=== PATIENT | male | born 1995 | race Hispanic/Latino ===

== ENCOUNTER 2019-01-31 01:14 | Emergency (ER) | payer SELFPAY ==
[~2019-01-31] VITALS: Ht 170.2 cm; Wt 109.1 kg
[2019-01-31 02:20] LABS: BASO % 0.2 % (0.0-1.0); EOS # 0.1 10^3/uL (0.0-0.50); EOS % 0.9 % (0.0-3.0); HEMATOCRIT 45.7 % (42.0-52.0); HEMOGLOBIN 15.2 g/dl (13.5-17.5); LYMPH # 2.7 10^3/uL (1.5-6.5); LYMPH % 30.1 % (24.0-44.0); MEAN CORPUSCULAR HEMOGLOBIN 30.1 pg (27.0-33.0); MEAN CORPUSCULAR HGB CONC 33.3 g/dl (32.0-36.5); MEAN CORPUSCULAR VOLUME 90.5 fl (80.0-96.0); MONO # 0.7 10^3/uL (0.0-0.8); MONO % 7.5 % (0.0-5.0); NEUTROPHILS # 5.4 10^3/uL (1.8-7.7); PLATELET COUNT, AUTOMATED 205 10^3/uL (150-450); RED BLOOD COUNT 5.05 10^6/uL (4.30-6.10); WHITE BLOOD COUNT 8.9 10^3/uL (4.0-10.0)
[2019-01-31 02:49] LABS: BLOOD UREA NITROGEN 18 MG/DL (7-18); CALCIUM LEVEL 8.6 MG/DL (8.5-10.1); CARBON DIOXIDE LEVEL 24 MEQ/L (21-32); CHLORIDE LEVEL 107 MEQ/L (98-107); CPK CREATINE PHOSPHOKINASE 371 U/L (39-308); CREATININE FOR GFR 1.24 MG/DL (0.70-1.30); GLOMERULAR FILTRATION RATE > 60.0 (>60); GLUCOSE, FASTING 89 MG/DL (70-100); MB/CK RELATIVE INDEX 1.02 (< OR =4); POTASSIUM SERUM 3.9 MEQ/L (3.5-5.1); SODIUM LEVEL 139 MEQ/L (136-145); TROPONIN I < 0.02 NG/ML (< 0.10)
[2019-01-31 06:07] LABS: CPK CREATINE PHOSPHOKINASE 348 U/L (39-308); MB/CK RELATIVE INDEX 1.01 (< OR =4); TROPONIN I < 0.02 NG/ML (< 0.10)
[2019-01-31] MEDS ORDERED: OMEPRAZOLE 20 MG CAP PO ONE (06:15)
[2019-01-31] MEDS ORDERED: OMEP40CA2 PO (06:44)
[2019-01-31 07:09] VITALS: BP 127/85
--- NOTE | 2019-01-31 07:56 | REP ---
Chest x-ray: Two views. History: Chest pain . Comparison study: No comparison . Findings: The lungs are well inflated and free of infiltrate. The pleural angles are sharp. The heart size is normal. Pulmonary vasculature is not increased. No significant bony abnormality is seen. Impression: Negative chest x-ray. Electronically Signed by Sae Ortiz MD 01/31/2019 07:47 A
--- NOTE | 2019-02-01 08:54 | ECGEPIP ---
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
--- NOTE | 2019-02-01 09:00 | ECGEPIP ---
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
== END 2019-01-31 07:15 | disposition home or self-care (01) ==
LOC: M ED 01:14
DX: R00.2 Palpitations (principal)

== ENCOUNTER 2019-11-17 12:03 | Emergency (ER) | payer SELFPAY ==
[~2019-11-17] VITALS: Ht 167.6 cm; Wt 108.2 kg
[~2019-11-17 12:03] MED LIST: OMEP40CA97 PO
--- NOTE | 2019-11-17 13:14 | REP ---
Chest x-ray: Two views. History: Chest pain. Comparison chest x-ray: January 31, 2019. Findings: EKG monitoring electrodes overlie the chest. Lungs are well inflated and clear. Pleural angles are sharp. Heart size is normal. No bony abnormality. Impression: Negative chest x-ray. Electronically Signed by Sae Ortiz MD 11/17/2019 01:05 P
[2019-11-17 13:35] LABS: BASO % 0.6 % (0.0-1.0); EOS # 0.1 10^3/uL (0.0-0.5); HEMATOCRIT 48.7 % (42.0-52.0); HEMOGLOBIN 15.4 g/dl (13.5-17.5); LYMPH # 1.7 10^3/uL (1.5-5.0); LYMPH % 32.9 % (24.0-44.0); MEAN CORPUSCULAR HEMOGLOBIN 29.3 pg (27.0-33.0); MEAN CORPUSCULAR HGB CONC 31.6 g/dl (32.0-36.5); MEAN CORPUSCULAR VOLUME 92.8 fl (80.0-96.0); MONO # 0.5 10^3/uL (0.0-0.8); MONO % 9.8 % (0.0-5.0); NEUTROPHILS # 2.8 10^3/uL (1.5-8.5); NEUTROPHILS % 55.5 % (36.0-66.0); PLATELET COUNT, AUTOMATED 216 10^3/uL (150-450); RED BLOOD COUNT 5.25 10^6/uL (4.30-6.10)
[2019-11-17 14:03] LABS: ERYTHROCYTE SEDIMENTATION RATE 5 mm/hr (0-15)
[2019-11-17 14:11] LABS: BLOOD UREA NITROGEN 12 MG/DL (7-18); CALCIUM LEVEL 8.6 MG/DL (8.5-10.1); CARBON DIOXIDE LEVEL 25 MEQ/L (21-32); CHLORIDE LEVEL 108 MEQ/L (98-107); CK-MB VALUE MASS 1.9 NG/ML (<3.6); CPK CREATINE PHOSPHOKINASE 174 U/L (39-308); GLOMERULAR FILTRATION RATE > 60.0 (>60); GLUCOSE, FASTING 92 MG/DL (70-100); LIPASE 56 U/L (73-393); MB/CK RELATIVE INDEX 1.09 (< OR =4); NT-PRO BNP 49 PG/ML (<125); POTASSIUM SERUM 4.3 MEQ/L (3.5-5.1); SODIUM LEVEL 139 MEQ/L (136-145); THYROID STIMULATING HORMONE 0.973 uIU/ML (0.358-3.740); TROPONIN I < 0.02 NG/ML (< 0.10)
[2019-11-17 14:57] VITALS: BP 119/63
--- NOTE | 2019-11-17 15:07 | ECGEPIP ---
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
== END 2019-11-17 15:19 | disposition home or self-care (01) ==
LOC: M ED 12:03
DX: R07.9 Chest pain, unspecified (principal); R00.2 Palpitations; R42 Dizziness and giddiness

== ENCOUNTER → 2021-01-06 | Outpatient (CLI) | payer OTHER ==
--- NOTE | 2021-01-09 08:11 | SLEEPHOME ---
DATE: 01/06/2021 ORDERED BY: Juan Pablo Storm Diagnostic home sleep testing was performed due to concern for the obstructive sleep apnea syndrome. For testing, a Nox T3 respiratory monitoring device was used. Continuous record was made of pulse, oxygen saturation, air flow, chest and abdominal strain, and body position. There was 9 hours and 59 minutes of data reviewed. There was 7 hours and 46 minutes marked as time in bed. During the interval marked time in bed, there were 746 respiratory events identified of 10 seconds in duration or greater for a respiratory event index of 96. The events were primarily obstructive. Baseline pulse rate 74. Pulse rate ranged 39-106. Baseline saturation 95%. Saturations fell to 75%. Testing was performed in the both the supine and nonsupine positions. IMPRESSION: Abnormal home sleep testing with repetitive respiratory events and oxygen desaturations to 75% with a respiratory event index of 96 is consistent with the obstructive sleep apnea syndrome. RECOMMENDATION: The patient should be encouraged to undergo formal sleep evaluation.
== END ==
LOC: M SLEEP HO 14:08
PROVIDERS: ATTEND Physician Assistant
DX: G47.30 Sleep apnea, unspecified (principal)

== ENCOUNTER → 2021-02-10 | Outpatient (CLI) | payer OTHER ==
--- NOTE | 2021-02-11 17:28 | SLEEPCENT ---
DATE: 02/10/2021 ORDERED BY: Juan Pablo Storm Nocturnal polysomnography was performed for the titration of pressure therapy in this patient with a clinical diagnosis of obstructive sleep apnea syndrome, confirmed by home testing, revealing respiratory event index of 96 with saturations to 75%. For testing, a ResMed Quattro full-face mask of medium size was used. There was 4 cm of water pressure applied to the circuit, and the lights were extinguished. There was 8 hours and 38 minutes of data reviewed. There was 381 minutes of sleep identified. Sleep latency was prolonged at 64.5 minutes. REM latency was prolonged at 165 minutes. Sleep architecture improved late in the study, but fragmentation persisted. Overall sleep efficiency was 74.6%. The electrocardiogram showed a sinus rhythm with an average heart rate of 72 beats per minute. Rate ranged 60-95. EEG showed normal waveforms for wake and sleep. Persistence of respiratory events prompted increases in CPAP pressure. Best sleep was seen on a CPAP pressure of 14 cm. Some minor snoring persisted. There was activity in the limb EMG leads on this study. Limb movement arousal index was 4.7. IMPRESSION: Obstructive sleep apnea syndrome (G47.33). RECOMMENDATION: Nightly use of pressure therapy, 14 cm of water.
== END ==
LOC: M SLEEP 20:00
PROVIDERS: ATTEND Physician Assistant
DX: G47.33 Obstructive sleep apnea (adult) (pediatric) (principal)

== ENCOUNTER 2021-09-18 17:39 | Emergency (ER) | payer OTHER ==
[~2021-09-18] VITALS: Ht 167.6 cm; Wt 102.3 kg
[~2021-09-18 17:39] MED LIST changes: +OMEP40CA4 PO; -OMEP40CA97 PO
--- OUTSIDE RECORDS SUMMARY | 2021-09-18 17:48 | CCD | Continuity of Care Document ---
Author Author Marlo STORM P.Vikas Organization Unknown Address [address] [place] [address] Phone [phone] Care Team Providers Care Hydraulic Press Tender Name Role Phone Corrine Williamson AUTM AUTM Unavailable Mary Beth Godwin M.D. AUTM [phone] Problems Active Problems Provider Date Obstructive sleep apnea syndrome Juan Pablo Storm PHernán Onset: 01/27/2021 Social History Type Date Description Comments Sex Unknown Tobacco Use Start: Unknown End: Unknown Patient is a former smoker hx marijuana daily; quit 2016 Smoking Status Reviewed: 08/13/21 Patient is a former smoker hx marijuana daily; quit 2016 Allergies and adverse reactions Description No Known Drug Allergies Medications Active Medications SIG Qnty Indications Ordering Provide r Date CPAP Device 14cm amadeo Torres D.O. 02/11/[address] 1 tab by mouth every day Unknown Flecainide Acetate 50mg Tablets 1 tab by mouth twice a day Unknown Metoprolol Succinate ER 50mg Tablets ER 24HR 1 tab by mouth twice a day Unknown 0 Immunizations Description No Information Available Vital Signs Date Vital Result Comment 08/13/2021 12:38pm BP Systolic 108 mmHg BP Diastolic 60 mmHg Heart Rate 66 /min O2 % BldC Oximetry 98 % Height 67 inches 5'7" Weight 238.00 lb BMI (Body Mass Index) 37.3 kg/m2 [place] Body Weight 148 lb Weight 107.957 kg BSA (Body Surface Area) 2.18 m2 05/13/2021 1:49pm BP Systolic 120 mmHg BP Diastolic 60 mmHg Heart Rate 64 /min O2 % BldC Oximetry 98 % Height 67 inches 5'7" Weight 255.00 lb BMI (Body Mass Index) 39.9 kg/m2 [place] Body Weight 148 lb Weight 115.668 kg BSA (Body Surface Area) 2.24 m2 Results Description No Information Available Procedures Date Code Description Status 05/13/2021 67436 Office/Outpatient Established Lo w MDM 20-29 Min Completed 04/07/2021 60436 Office/Outpatient Established Lo w MDM 20-29 Min Completed Medical Devices Description No Information Available Encounters Type Date Location Provider Dx Diagnosis Office Visit 05/13/2021 2:00p [facility] Pulmonary/Thoracic Roya Aldrich G47.33 Obstructive sleep apnea (adult) (pediatr ic) Office Visit 04/07/2021 3:00p [facility] Pulmonary/Thoracic Roya Aldrich G47.33 Obstructive sleep apnea (adult) (pediatr ic) Assessments Date Code Description Provider 08/13/2021 G47.33 Obstructive sleep apnea (adult) (pediatric) Roya Aldrich 05/13/2021 G47.33 Obstructive sleep apnea (adult) (pediatric) Roya Alrdich 04/07/2021 G47.33 Obstructive sleep apnea (adult) (pediatric) Roya Aldrich 04/03/2021 G47.33 Obstructive sleep apnea (adult) (pediatric) Roya Aldrich Plan of Treatment Future Appointment(s):* 02/11/2022 2:00 pm - Roya Aldrich at [facility] Pulmonary/Thoracic 08/13/2021 - Roya Aldrich* G47.33 Obstructive sleep apnea (adult) (pediatric) * * Follow up:* Follow up in 6 months with download Functional Status Description No Information Available Mental Status Description No Information Available Referrals Refer to Reason for Referral Status Appt Date Juan Pablo Storm R.P.A.-C. MELCHOR Scheduled 05/2021 [facility]-Pulmonary [address] [place] [address] [phone]
--- OUTSIDE RECORDS SUMMARY | 2021-09-18 17:48 | CCD | Continuity of Care Document ---
Author Author Marlo STORM P.Vikas Organization Unknown Address [address] [place] [address] Phone [phone] Care Team Providers Care Shot Coat Tender Name Role Phone Corrine Williamson AUTM [phone] AUTM Unavailable Mary Beth Godwin M.D. AUTM [phone] Problems Active Problems Provider Date Obstructive sleep [...] lb BMI (Body Mass Index) 37.3 kg/m2 [place] Body Weight 148 lb Weight 107.957 kg BSA (Body Surface Area) 2.18 m2 05/13/2021 1:49pm BP Systolic 120 mmHg BP Diastolic 60 mmHg Heart Rate 64 /min O2 % BldC Oximetry 98 % Height 67 inches 5'7" Weight 255.00 lb BMI (Body Mass Index) 39.9 kg/m2 [place] Body Weight 148 lb Weight 115.668 kg BSA (Body Surface Area) 2.24 m2 Results Description No Information Available Procedures Date Code Description Status 05/13/2021 15710 Office/Outpatient Established Lo w MDM 20-29 Min Completed 04/07/2021 71011 Office/Outpatient Established Lo w MDM 20-29 Min Completed Medical Devices Description No Information Available Encounters Type Date Location Provider Dx Diagnosis Office Visit 05/13/2021 2:00p [facility] Pulmonary/Thoracic Roya Aldrich G47.33 Obstructive sleep apnea (adult) (pediatr ic) Office Visit 04/07/2021 3:00p [facility] Pulmonary/Thoracic Roya Aldrich G47.33 Obstructive sleep apnea (adult) (pediatr ic) Assessments Date Code Description Provider 08/13/2021 G47.33 Obstructive sleep apnea (adult) (pediatric) Roya Aldrich 05/13/2021 G47.33 Obstructive sleep apnea (adult) (pediatric) Roya Aldrich 04/07/2021 G47.33 Obstructive sleep apnea (adult) (pediatric) Roya Aldrich 04/03/2021 G47.33 Obstructive sleep apnea (adult) (pediatric) Roya Aldrich Plan of Treatment Future Appointment(s):* 02/11/2022 2:00 pm - Roya Aldrich at [facility] Pulmonary/Thoracic 08/13/2021 - Roya Aldrich* G47.33 Obstructive sleep apnea (adult) (pediatric) * * Follow up:* Follow up in 6 months with download Functional Status Description No Information Available Mental Status Description No Information Available Referrals Refer to Reason for Referral Status Appt Date Juan Pablo Storm R.P.A.-C. MELCHOR Scheduled 05/2021 [facility]-Pulmonary [address] [place] [address] [phone]
--- OUTSIDE RECORDS SUMMARY | 2021-09-18 17:48 | CCD | Continuity of Care Document ---
Author Author Marlo STORM P.Vikas Organization Unknown Address [address] [place] [address] Phone [phone] Care Team Providers Care Choral Teacher Name Role Phone Corrine Williamson AUTM [phone] AUTM Unavailable Mary Beth Godwin M.D. AUTM [phone] Problems Active Problems Provider Date Obstructive sleep [...] lb BMI (Body Mass Index) 37.3 kg/m2 [place] Body Weight 148 lb Weight 107.957 kg BSA (Body Surface Area) 2.18 m2 05/13/2021 1:49pm BP Systolic 120 mmHg BP Diastolic 60 mmHg Heart Rate 64 /min O2 % BldC Oximetry 98 % Height 67 inches 5'7" Weight 255.00 lb BMI (Body Mass Index) 39.9 kg/m2 [place] Body Weight 148 lb Weight 115.668 kg BSA (Body Surface Area) 2.24 m2 Results Description No Information Available Procedures Date Code Description Status 05/13/2021 15970 Office/Outpatient Established Lo w MDM 20-29 Min Completed 04/07/2021 80691 Office/Outpatient Established Lo w MDM 20-29 Min Completed Medical Devices Description No Information Available Encounters Type Date Location Provider Dx Diagnosis Office Visit 05/13/2021 2:00p [facility] Pulmonary/Thoracic Roya Aldrich G47.33 Obstructive sleep apnea (adult) (pediatr ic) Office Visit 04/07/2021 3:00p [facility] Pulmonary/Thoracic Roya Aldrich G47.33 Obstructive sleep apnea (adult) (pediatr ic) Assessments Date Code Description Provider 08/13/2021 G47.33 Obstructive sleep apnea (adult) (pediatric) Roya Aldrich 05/13/2021 G47.33 Obstructive sleep apnea (adult) (pediatric) Roya Aldrich 04/07/2021 G47.33 Obstructive sleep apnea (adult) (pediatric) Roya Aldrich 04/03/2021 G47.33 Obstructive sleep apnea (adult) (pediatric) Roya Aldrich Plan of Treatment Future Appointment(s):* 02/11/2022 2:00 pm - Roya Aldrich at [facility] Pulmonary/Thoracic 08/13/2021 - Roya Aldrich* G47.33 Obstructive sleep apnea (adult) (pediatric) * * Follow up:* Follow up in 6 months with download Functional Status Description No Information Available Mental Status Description No Information Available Referrals Refer to Reason for Referral Status Appt Date Juan Pablo Storm R.P.A.-C. MELCHOR Scheduled 05/2021 [facility]-Pulmonary [address] [place] [address] [phone]
--- OUTSIDE RECORDS SUMMARY | 2021-09-18 17:48 | CCD ---
Author Author [facility] Organization [facility] Address Unknown Phone Unavailable Care Team Providers Care Records Supervisor Name Role Phone Clay Winkler Corrine PA-C Unavailable Unavailabl e Petrancosta, Winkler Corrine PA-C Unavailable Unavailabl e Petrancosta, Winkler Corrine PA-C Unavailable Unavailabl e Petrancosta, Winkler Corrine PA-C Unavailable Unavailabl e Petrancosta, Winkler Corrine PA-C Unavailable Unavailabl e Petrancosta, Winkler Corrine PA-C Unavailable Unavailabl e Petrancosta, Winkler Corrine PA-C Unavailable Unavailabl e Petrancosta, Winkler Corrine PA-C Unavailable Unavailabl e Petrancosta, Winkler Corrine PA-C Unavailable Unavailabl e Petrancosta, Winkler Corrine PA-C Unavailable Unavailabl e Petrancosta, Winkler Corrine PA-C Unavailable Unavailabl e Petrancosta, Winkler Corrine PA-C Unavailable Unavailabl e Petrancosta, Winkler Corrine PA-C Unavailable Unavailabl e Petrancosta, Winkler Corrine PA-C Unavailable Unavailabl e Petrancosta, Winkler Corrine PA-C Unavailable Unavailabl e Petrancosta, Winkler Corrine PA-C Unavailable Unavailabl e Petrancosta, Winkler Corrine PA-C Unavailable Unavailabl e Petrancosta, Winkler Corrine PA-C Unavailable Unavailabl e Petrancosta, Winkler Corrine PA-C Unavailable Unavailabl e Petrancosta, Winkler Corrine PA-C Unavailable Unavailabl e Petrancosta, Winkler Corrine PA-C Unavailable Unavailabl e Petrancosta, Winkler Corrine PA-C Unavailable Unavailabl e Petrancosta, Winkler Corrine PA-C Unavailable Unavailabl e Petrancosta, Winkler Corrine PA-C Unavailable Unavailabl e Petrancosta, Winkler Corrine PA-C Unavailable Unavailabl e [place], V DANIEL PA-C Unavailable Unavailable [place], V DANIEL PA-C Unavailable Unavailable Lorene, V DANIEL PA-C Unavailable Unavailable Lorene, V DANIEL PA-C Unavailable Unavailable [place], V DANIEL PA-C Unavailable Unavailable [place], V DANIEL PA-C Unavailable Unavailable [place], V DANIEL PA-C Unavailable Unavailable [place], V DANIEL PA-C Unavailable Unavailable Lorene, V DANIEL PA-C Unavailable Unavailable Lorene, V DANIEL PA-C Unavailable Unavailable Lorene, V DANIEL PA-C Unavailable Unavailable [place], V DANIEL PA-C Unavailable Unavailable Lorene, V DANIEL PA-C Unavailable Unavailable [place], V DANIEL PA-C Unavailable Unavailable Petrancosta, Winkler Corrine PA-C Unavailable Unavailabl e Petrancosta, Winkler Corrine PA-C Unavailable Unavailabl e Petrancosta, Winkler Corrine PA-C Unavailable Unavailabl e Petrancosta, Winkler Corrine PA-C Unavailable Unavailabl e Petrancosta, Winkler Corrine PA-C Unavailable Unavailabl e Petrancosta, Winkler Corrine PA-C Unavailable Unavailabl e Petrancosta, Winkler Corrine PA-C Unavailable Unavailabl e Petrancosta, Winkler Corrine PA-C Unavailable Unavailabl e Petrancosta, Winkler Corrine PA-C Unavailable Unavailabl e Petrancosta, Winkler Corrine PA-C Unavailable Unavailabl e Petrancosta, Winkler Corrine PA-C Unavailable Unavailabl e Petrancosta, Winkler Corrine PA-C Unavailable Unavailabl e Petrancosta, Winkler Corrine PA-C Unavailable Unavailabl e Petrancosta, Winkler Corrine PA-C Unavailable Unavailabl e Petrancosta, Winkler Corrine PA-C Unavailable Unavailabl e Petrancosta, Winkler Corrine PA-C Unavailable Unavailabl e Petrancosta, Winkler Corrine PA-C Unavailable Unavailabl e Petrancosta, Winkler Corrine PA-C Unavailable Unavailabl e Petrancosta, Winkler Corrine PA-C Unavailable Unavailabl e Petrancosta, Winkler Corrine PA-C Unavailable Unavailabl e Petrancosta, Winkler Corrine PA-C Unavailable Unavailabl e Petrancosta, Winkler Corrine PA-C Unavailable Unavailabl e Petrancosta, Winkler Corrine PA-C Unavailable Unavailabl e Petrancosta, Winkler Corrine PA-C Unavailable Unavailabl e Petrancosta, Winkler Corrine PA-C Unavailable Unavailabl e STYLES, M AMANDA PA Unavailable Unavailable STYLES, M AMANDA PA Unavailable Unavailable STYLES, M AMANDA PA Unavailable Unavailable STYLES, M AMANDA PA Unavailable Unavailable STYLES, M AMANDA PA Unavailable Unavailable STYLES, M AMANDA PA Unavailable Unavailable STYLES, M AMANDA PA Unavailable Unavailable STYLES, M AMANDA PA Unavailable Unavailable STYLES, M AMANDA PA Unavailable Unavailable STYLES, M AMANDA PA Unavailable Unavailable STYLES, M AMANDA PA Unavailable Unavailable STYLES, M AMANDA PA Unavailable Unavailable STYLES, M AMANDA PA Unavailable Unavailable STYLES, M AMANDA PA Unavailable Unavailable STYLES, M AMANDA PA Unavailable Unavailable STYLES, M AMANDA PA Unavailable Unavailable STYLES, M AMANDA PA Unavailable Unavailable STYLES, M AMANDA PA Unavailable Unavailable STYLES, M AMANDA PA Unavailable Unavailable STYLES, M AMANDA PA Unavailable Unavailable STYLES, M AMANDA PA Unavailable Unavailable STYLES, M AMANDA PA Unavailable Unavailable STYLES, M AMANDA PA Unavailable Unavailable STYLES, M AMANDA PA Unavailable Unavailable STYLES, M AMANDA PA Unavailable Unavailable STYLES, M AMANDA PA Unavailable Unavailable STYLES, Jada PATEL PA Unavailable Unavailable STYLES, Jada PATEL PA Unavailable Unavailable STYLES, Jada PATEL PA Unavailable Unavailable STYLES, Jada PATEL PA Unavailable Unavailable STYLES, Jada PATEL PA Unavailable Unavailable STYLES, Jada PATEL PA Unavailable Unavailable STYLES, Jada PATEL PA Unavailable Unavailable STYLES, Jada PATEL PA Unavailable Unavailable STYLES, Jada PATEL PA Unavailable Unavailable Re-disclosure Warning The records that you are about to access may contain information from federally-assisted alcohol or drug abuse programs. If such information is present, then the following federally mandated warning applies: This information has been disclosed to you from records protected by federal confidentiality rules (42 CFR part 2). The federal rules prohibit you from making any further disclosure of this information unless further disclosure is expressly permitted by the written consent of the person to whom it pertains or as otherwise permitted by 42 CFR part 2. A general authorization for the release of medical or other information is NOT sufficient for this purpose. The Federal rules restrict any use of the information to criminally investigate or prosecute any alcohol or drug abuse patient.The records that you are about to access may contain highly sensitive health information, the redisclosure of which is protected by Article 27-F of the [facility] Public Health law. If you continue you may have access to information: Regarding HIV / AIDS; Provided by facilities licensed or operated by the [facility] Office of Mental Health; or Provided by the [facility] Office for People With Developmental Disabilities. If such information is present, then the following [facility] mandated warning applies: This information has been disclosed to you from confidential records which are protected by state law. State law prohibits you from making any further disclosure of this information without the specific written consent of the person to whom it pertains, or as otherwise permitted by law. Any unauthorized further disclosure in violation of state law may result in a fine or [place] health care facility sentence or both. A general authorization for the release of medical or other information is NOT sufficient authorization for further disc losure. Encounters Encounter Providers Location Date Indications Data Source(s ) Outpatient Attender: AMANDA Sahu/Yared/Selvin/Tita dl 08/13/2021 12:30:00 PM EDT [facility] ([facility], ) Outpatient Referrer: DANIEL PHILIPPECT-SJP.SYR 01:06:[address] [facility] Outpatient Attender: DANIEL Francisferrer: [facility] PHILIPPEOSCAR-SJP.OSCAR 06/18/2021 12:59:55 PM EDT - 06/18/2021 01:54:[address] [facility] Outpatient Attender: AMANDA Sahu/[place]/Selvin/Rein dl 05/13/2021 02:00:00 PM EDT [facility] Out[facility] Attender: AMANDA Sahu/[place]/Selvin/Rein dl 04/07/2021 03:00:00 PM EDT [facility] ([facility], ) Outpatient Attender: DANIEL Francisferrer: [facility] PHILIPPEOSCAR-SJP.OSCAR 03/18/2021 03:09:34 PM EDT - 03/18/2021 04:09:[address] [facility] Outpatient Referrer: DANIEL PHILIPPECT-SJP.SYR 12:00:[address] [facility] Outpatient Attender: DANIEL Francisferrer: [facility] LÓPEZ.OSCAR-SJP.OSCAR 03/09/2021 08:13:45 AM EDT - 03/09/2021 09:00:[address] [facility] Outpatient Referrer: DANIEL LÓPEZ.OSCAR-SJP.OSCAR 12:00:[address] [facility] Outpatient Attender: AMANDA Sahu/[place]/Selvin/Rein dl 01/27/2021 10:00:00 AM EDT [facility] Outpatient Attender: DANIEL Francisferrer: [facility] LÓPEZ.OSCAR-SJP 12/30/2020 02:36:16 PM EST - 12/30/2020 04:01:[address] [facility] Outpatient Attender: AMANDA Sahu/Yared/Selvin/Tita johnson 12/26/2020 12:00:00 PM EST [facility] ([facility] Outpatient Attender: Corrine Williamson PA-C Main Office 09/17/2020 12:30:00 PM EST [facility] ([facility] Immunizations Vaccine Date Status Description Data Source(s) COVID-19 VACCINE Moderna 04/20/2021 12:00:00 AM EDT completed [facility] Vaccine Series Complete: YESThis Data wa s Submitted to [facility] Via [facility]. COVID-19 VACCINE Moderna 03/23/2021 12:00:00 AM EDT completed [facility]SIIS Vaccine Series Complete: NOThis Data was Submitted to [facility] Via [facility]. Medications Medication Brand Name Start Date Product Form Dose Route Admi nistrative Instructions Pharmacy Instructions Status Indications Reaction Description Data Source(s) Aspirin 325 MG Delayed Release Oral Tablet aspirin 325 MG EC tablet aspirin 325 MG EC tablet 06/18/2021 12:00:00 AM EDT 325 mg Oral activ e Take 1 tablet (325 mg total) by mouth daily [facility] Flecainide Acetate 50 MG Oral Tablet flecainide (TAMBO COR) 50 MG tablet flecainide (TAMBOCOR) 50 MG tablet 05/07/2021 12:00:00 AM EDT 50 mg Oral active Take 1 tablet (50 mg total) by m outh 2 (two) times a day [facility] Metoprolol Tartrate 50 MG Oral Tablet me toprolol tartrate (LOPRESSOR) 50 MG tablet metoprolol tartrate (LOPRESSOR) 50 MG tablet 05/07/2021 12:0 0:00 AM EDT 50 mg Oral active Take 1 tablet (5 0 mg total) by mouth 2 (two) times a day [facility] Flecainide Acetate 50 MG Oral Tablet flecainide (TAMBO COR) 50 MG tablet flecainide (TAMBOCOR) 50 MG tablet 03/18/2021 12:00:00 AM EDT 50 mg Oral active Take 1 tablet (50 mg total) by m outh 2 (two) times a day [facility] Metoprolol Tartrate 50 MG Oral Tablet me toprolol tartrate (LOPRESSOR) 50 MG tablet metoprolol tartrate (LOPRESSOR) 50 MG tablet 03/18/2021 12:0 0:00 AM EDT 50 mg Oral active Take 1 tablet (5 0 mg total) by mouth 2 (two) times a day [facility] Aspirin 325 MG Delayed Release Oral Tablet aspirin 325 MG EC tablet aspirin 325 MG EC tablet 03/18/2021 12:00:00 AM EDT 325 mg Oral abort ed Take 1 tablet (325 mg total) by mouth daily [facility] Flecainide Acetate 50 MG Oral Tablet flecainide (TAMBO COR) 50 MG tablet flecainide (TAMBOCOR) 50 MG tablet 03/11/2021 12:00:00 AM EDT 50 mg Oral aborted Take 1 tablet (50 mg total) by m outh 2 (two) times a day [facility] Metoprolol Tartrate 50 MG Oral Tablet me toprolol tartrate (LOPRESSOR) 50 MG tablet metoprolol tartrate (LOPRESSOR) 50 MG tablet 03/09/2021 12:0 0:00 AM EDT 50 mg Oral aborted Take 1 tablet (5 0 mg total) by mouth 2 (two) times a day [facility] Metoprolol Tartrate 25 MG Oral Tablet me toprolol tartrate (LOPRESSOR) 25 MG tablet metoprolol tartrate (LOPRESSOR) 25 MG tablet 02/19/2021 12:0 0:00 AM EDT 25 mg Oral aborted Take 1 tablet (2 5 mg total) by mouth 2 (two) times a day [facility] CPAP 02/11/2021 12:00:00 AM EDT active [facility] ([facility]) No Active Medications 12/26/2020 12:00:00 AM EST completed [facility] ([facility]) Insurance Providers Payer name Policy type / Coverage type Policy ID Covered constitution party ID Covered constitution party's relationship to martinez Policy Martinez Plan Information [facility] [id number] SP [id number] [facility] [id number] Mansi [id number] 12 [facility] [id number] xxxxxxxxx [id number] SELF PAY ONLY [id number] SP [id number] [facility] FROYLAN X -[facility] [id number] Problems, Conditions, and Diagnoses Code Display Name Description Problem Type Effective Dates Data Source(s) E66.01 Morbid (severe) obesity due to excess ca lories Morbid (severe) obesity due to excess ca Diagnosis 06/18/2021 12:59:[address] [facility] I48.0 Paroxysmal atrial fibrillation Paroxysmal atrial fibri llation Diagnosis 06/18/2021 12:59:[address] [facility] E66.09 Other obesity due to excess calories Oth er obesity due to excess calories Diagnosis 03/09/2021 08:13:[address] [facility] R00.2 Palpitations Palpitations Diagnosis 03/09/2021 08:13:[address] [facility] I48.0 Paroxysmal atrial fibrillation Paroxysmal atrial fibri llation [id number] 03/18/2021 12:00:[address] [facility] G47.33 Obstructive sleep apnea syndrome Obstructive sle ep apnea syndrome Problem 01/27/2021 12:00:00 AM EDT [facility] ([facility] [place], ) E66.01 Morbid obesity Morbid obesity [id number] 12/30/2020 12:00: [address] [facility] R00.2 Palpitations Palpitations [id number] 12/30/2020 12:00:00 A M [facility] Surgeries/Procedures Procedure Description Date Indications Data Source(s) OFFICE OUTPATIENT VISIT 15 MINUTES 08/13/2021 12:00:00 AM EDT [facility] ([facility]) POCT AMB EKG <td>POCT AMB EKG</td><td>Rou ines</td><td>06/18/2021 1:18 PM EDT</td><td> Paroxysmal atrial fibrillation</td><td> </td> 06/18/2021 01:18:00 PM EDT Paroxysmal atrial fibrillation [facility] Paroxysmal atrial fibrillation OFFICE OUTPATIENT VISIT 15 MINUTES 05/13/2021 12:00:00 AM EDT [facility] ([facility], ) OFFICE OUTPATIENT VISIT 15 MINUTES 04/07/2021 12:00:00 AM EDT [facility] ([facility], ) POCT AMB EKG <td>POCT AMB EKG</td><td>Rou ines</td><td>03/18/2021 4:25 PM EDT</td><td> Palpitations</td><td> </td> 03/18/2021 04:25:[address] [facility] Palpitations ECG ROUTINE ECG W/LEAST 12 LDS W/I&R <td>POCT AMB EKG</td><td>Routine</td><td>03/09/2021 8:52 AM EDT</td><td> Palpitations</td><td> </td> 03/09/2021 08:52:[address] [facility] Palpitations OFFICE OUTPATIENT VISIT 15 MINUTES 01/27/2021 12:00:00 AM EDT [facility] ([facility], ) POCT AMB EKG <td>POCT AMB EKG</td><td>Rou ines</td><td>12/30/2020 4:10 PM EST</td><td> Palpitations</td><td> </td> 12/30/2020 09:10:[address] [facility] Palpitations OFFICE OUTPATIENT NEW 30 MINUTES 12/26/2020 12:00:00 A M EST [facility] ([facility], ) Brief Emotional/Behav Assessment W/ Scoring Doc Per Standard Inst 09/17/2020 12:00:00 AM EST [facility] ([facility] Results ID Date Data Source [id number] 06/23/2021 06:53:[address] [facility] Name Value Range Interpretation Code Description Data Wilda rce(s) Supporting Document(s) &PDF [facility] VWTTCl5zXbVPOkOc48/SQSvsVSErs9YtBEngDOk9DRpyMXDdE6FerZjoJVrRXIRQAK2BPCaHPKGzGWB2 FcG [file] ICAgICAgICAgICAgICAgICAgICAgICAgICAgICAgICAgICAgICAgICAgICAgICAgICAgICAgICAgICAg ICANCiAgICAgICAgICAgICAgICAgICAgICAgICAgIC AgICAgICAgICAgICAgICAgICAgICAgICAgICAgICAgICAgICAgICAgICAgICAgICAgICAgICAgICAgIC AgICAgICAgICAgICANCiAgICAgICAgICAgICAgICAgICAgICAgICAgICAgICAgICAgICAgICAgICAgIC AgICAgICAgICAgICAgICAgICAgICAgICAgICAgICAg ICAgICAgICAgICAgICAgICAgICAgICANCiAgICAgICAgICAgICAgICAgICAgICAgICAgICAgICAgICAg ICAgICAgICAgICAgICAgICAgICAgICAgICAgICAgICAgICAgICAgICAgICAgICAgICAgICAgICAgICAg ICAgICANCiAgICAgICAgICAgICAgICAgICAgICAgIC AgICAgICAgICAgICAgICAgICAgICAgICAgICAgICAgICAgICAgICAgICAgICAgICAgICAgICAgICAgIC AgICAgICAgICAgICAgICANCiAgICAgICAgICAgICAgICAgICAgICAgICAgICAgICAgICAgICAgICAgIC AgICAgICAgICAgICAgICAgICAgICAgICAgICAgICAg ICAgICAgICAgICAgICAgICAgICAgICAgICANCiAgICAgICAgICAgICAgICAgICAgICAgICAgICAgICAg ICAgICAgICAgICAgICAgICAgICAgICAgICAgICAgICAgICAgICAgICAgICAgICAgICAgICAgICAgICAg ICAgICAgICANCiAgICAgICAgICAgICAgICAgICAgIC AgICAgICAgICAgICAgICAgICAgICAgICAgICAgICAgICAgICAgICAgICAgICAgICAgICAgICAgICAgIC AgICAgICAgICAgICAgICAgICANCiAgICAgICAgICAgICAgICAgICAgICAgICAgICAgICAgICAgICAgIC AgICAgICAgICAgICAgICAgICAgICAgICAgICAgICAg ICAgICAgICAgICAgICAgICAgICAgICAgICAgICANCiAgICAgICAgICAgICAgICAgICAgICAgICAgICAg ICAgICAgICAgICAgICAgICAgICAgICAgICAgICAgICAgICAgICAgICAgICAgICAgICAgICAgICAgICAg ICAgICAgICAgICANCjw/wOZcJ3kbvVPomrA0K5vtKx 7AYb3WVF6mp9EtHQDnGKnpwtXpOxdXSlJhSBIzTmcOJdl5AYqqVG1CkBCcY9MrU9VkXMmdHT8KEDNzEQ JsdWXgBLUwDYLeLrQ0UDBkJTviQR8TnLMjHAsaWRNiRADfNcAyIUCxWH8ZCKHeD866wwVuHz1EHo5TEm NgSH6mdi8NGyYyQKWuAveRCom1QZozVC6QwCWgO8Fs iWUfa5eMAuBvF6PLCOXrGPQuEe9HLMWmSyChPGSnOSsxQP4eLVDeSDJSrFagmeA4BL6ZNO9imkQpZU1A XhBnQc6nBd5PJoZyE3DuA7ExCAIrRVAKVBmfRW2AWAVsELL7MTQhCDQlENOBLnTaD59gKA2CC7Bqa00t RfC2WAKrQdEsIOkdHU29zMtwgmBkdSWhwUtqIR8GBe 4+QGathxVsFqoIErxaRTSVHdWdOwXFQnCyMJBnWRQtFYLtEuP3WzUnYt9AQCGiIAVtZHWbNrIcMYWjQA IoVYkkSJTlINY0ERV7YUKlLAFsNI6HGcAfIPXwTJk1JPxlXDPmAHEuob3VSBQkQNFkRLK0EHYeJSYeXD QkLNgfEWCaGXXdUYPjRZYyMAPaTE4TZfWoEPJcEYBz FFErFTZeDSFdgf6XYKYjRSRrHjO8JLCvUIDnYQMiCEivGTKwKCH5Ccc5RFUaPKUbLD4XMnHkJKGdYSpe MdreZFIcENUhjm0WDCQjNFSzSiLfIpNdJXMqYWPlTOurSAIgUOA9NdE5WAXdZPBpRR5JOoOiBCIvBFt9 ShPnOKJwXYMzdp2QMVIxTSBmITh9NPRuTNDxKUFpIL jvNLSsLRP1IOTnYOHdZLVcQK6WUjSlWGXcIEn5ZcYfZEIrEMIqwi3HOTMlZZHdOOGrCiDcEQDdRTRnHX ymYPIyRXRiEtA1ZIQwYKLaCV4RItMpQMWhCPZnRhTgSGFxOHAtqz2EKKHbBXLhRRT4BeAiTPZoFTRgNP xgNWYwAWRcGpR1BPKaSLTyUJ9CMtHjWBIuPYQ1LOGf IQUxGTJrbc5ISQUnACDuJxifRYGqWKPmLLKqWAlcOGPnIWBhQAOkISOnQXOpKA2MMhOsGTZgTLHjAzCh OTQfMKQdnj9FVCWqBDKdWrN0RYMbNEPhDTFbHSanIZBfBQHqIBakNUVpXOZqKP5VCaDoKSMqGRDjHClg ZEXlOCRkdh9JCCXqTEJpTGA4SpAxQKYeEUGiSVgrCD AtARL0ClJ9LZXoSDTsKK1YUhGcJXOxDTSrXzMzVQFzBLCpna6GTQAjEWRgHVFbOdDiOWAiOBZtBRkbNR MlYWF6PRB5IKFtIBQbIM2FBgKjPJVhLFO1TZLiHBJfDXGpqd5XWKWnDBPpElQvUJPtHHZbMRFkBCrrLU OaRBS5OUHgXNVwKUOnIU9ZScGiPRplUCRRDor2OWme Q0o1BMDuHh6US6Avl2EnNcVvFUXQPGjwWH2kwbHmVAOuEc9OQ1fQGtvhUOVrXJI0W5S3QAZzIXCoFpNv PMo7HJI3RXMjHbt2QQ1mFTF6CCL7SXuxCLg7EWBvHFHrPAGkPFBuQhisUcDwQNd0VtDwFA3WXl7QYnX9 XXK9hQYmHa4BTTteVNQGDyRhCV4IFDg= ID Date Data Source [id number] 03/17/2021 10:38:11 AM [facility] Name Date of Age Gend*PT [id number] Marlo Harris 1995 25 years M ---PT Location Admission Date/Time Visit ID Attending Provider --- --- --- --- EPI ID CSN Admitting Pro vider [id number] ---Addended by: DANIEL ACOSTA on: 03/17/2021 10:38 AM Modules accepted: Level of Service Name Value Range Interpretation Code Description Data Wilda rce(s) Supporting Document(s) ID Date Data Source [id number] 03/17/2021 09:34:[address] [facility] Name Value Range Interpretation Code Description Data Wilda rce(s) Supporting Document(s) &PDF [facility] LDEFOl9eUrSKAcCn01/WUHyrWZJev3UbVMyeHMj2ZFcaTQRcW3BktZnhNZdRZBMWMW9DSMuEJATmWWG9 FcG [file] BPTf/5+HxBV++f//sweeper cleaner industrial+561rYZNcK0B0ACr+UrZ6OwXQ/eIKW9URe+n//91wSWuHPTvfRZ0aaX7J3R88 woblVKJq7lY7Ct+BAr0+J/+lQwX8f/8Hg3/RETR7h3AGjQjBM4SOQ7zCs/opB34pqX7lMWQZQL2AAV5R IW3ui2VlKTXcGUlbvbVkPjhJIbNyUINgq7ZsFMn0JN 7YCOHdYUnrJZ1NJ9LiCNQ2V7N0AmA8vHHzIK2rI1CkGqCsUN7wnKn3X8JdyCLYKUJFn26ok14gzyBjEB 9Gr5nmvlAeCEUfY3NjdlccMKIWDc7AqTC5nKMmBp8UHRmnzLGlRAQoMRFeP4AoBUVsZK2BmUt2TZKyTw 4QaXW0EUWnY59lAP4NWcBxK7BCRVVoGNE6BATpSiLM Cj4+EAffqMDlKQ9DQwvS+///PwMYBGRUQBADbvAfDECKEyqIV4+sJPkpeM2iGr1ZLrVtzn+hoYFE/xaQ qJ64+ELWghQFHqjRgTV+QOiknkjfG6fPYgcjm8njK3Tq4vJQ1TLiLnluNeRDxyYo+HVqDPPVY3t7EZpn cyRhwOKtMZ5BDhHiZD4esl1JPtFkHJFdZfgMKkezSL lrenIeTmtVHxGxZMKnGrfTCrn5WGazAY2Gdm3qK1H8XNesEXGUP0EnpQIkNU6rA0IMK2gcIPfwIz0ROh UlL5WcnkZdKYkgA7LwCVkkJZAZIAjvCXQqN7XsBQZfCAVmUe3VNDObKP5NNpXoLVYkEPP+Ru1BVYVqWF 2hvyZruCQ1CTPvpB1tMFClSLDfAWRHSjViRDNkyZ1r QLWwJlHmTUSTFrPrNDGeoV3yGiKwUcFxPLYNTmMtSQEvtX6sRnZtBTEsQNZMAaTmUOYszP6dTRXiWODz XCQWQvFiGJDdtK7ePOQfLCNeXXY+Xe6CJMMbCHs7A2Y6GWUrIPe6Q2TYH5PTWCKkHGpqYFexBLAxJRr9 A1Z6NGMyI1MKD7Peklekcq2+LU8KU37XLBEaKJs0B4 B4sVUbG7N8lLcRrHF6VH8SAC7RxVo5uPWsdJ1+GS7YM8EBFtWmELc1A3K8kETwV7C5pBhIxIE4BZ7KDO 4IcNLtBQOnmeAkUp3fO0NPMIqBCnKGMYD3IL3HyBOoZI9ZcSUWX0HtrWSrTn2hGLpjnHDtdK1fNr6wHF bbQA7ATvCWIQgJTVI3QW7GaXJxHD9UeYDYP0CjjJDe Yu9xPMhgwBBdhs2+ZO7QOGArFo7EQx2+WKcfxrOqUfvALyUnRFXtm8UhERr7OE7NXZ0mhTlnZOG0Lm0L hRH3qYCfU7hWSK4ClEKqE89jtKDlWJJfVw8VGaL0odGsbO9SGX39nOSuw3I7GFNvE0orSKhls03mDQbf MWkIXS6sFATMXPhlVZzyUQA7OmSpcapnRAYkKg1WOc WrDXp3tT4lnRE8UBT6IavrkSYaDJspOjRiYvKmUwM1tLjudut7VJzfYT9vEQwrwmreLTRfKww+DQogIC RqYCSrUuoMXPTccR2kwdO0hcOyJXibqPIiMk9nf2g1YzlvYy9fBz5fPPr8RwMrSlLsXUXgFk7kiC91FH bnteWtOr4EIqPuIBT4X6MlKbwDUVJ+DQogIDwveDp4 dMPhTTUtPm6CKITrAUSdRMLoBFRaIWVqKTXcMEYiAZYdOASdAXXxJMVdPYTeADNgEJWdIKQzIPOeXIPa OHNqDHAqNNQfAFJeRHAiOOGaLHQtUOVuVIClSQYaWDQaMRCmMIQxKXKnJKUyVCJdEN9WYZGgBCTaADTk ICAgICAgICAgICAgICAgICAgICAgICAgICAgICAgIC AgICAgICAgICAgICAgICAgICAgICAgICAgICAgICAgICAgICAgICAgICAgICAgICAgICAgICAgICAgIA 0KICAgICAgICAgICAgICAgICAgICAgICAgICAgICAgICAgICAgICAgICAgICAgICAgICAgICAgICAgIC AgICAgICAgICAgICAgICAgICAgICAgICAgICAgICAg RHPnDUJnKTFsDD9EZNBvLKAvRGWhGUNqDVPbVOJcAFTnPSNvWEFoKCXuQAIrXRBkSPJgOYXgBMAfDEOe ZZLsLVNsXJZrGLGsSHDsNJDhHTWwIATtZOUbYRLrSYUuEMNtKTIgTKGxIWGwKFLuFXOwTA6DPBXbFVNq ICAgICAgICAgICAgICAgICAgICAgICAgICAgICAgIC AgICAgICAgICAgICAgICAgICAgICAgICAgICAgICAgICAgICAgICAgICAgICAgICAgICAgICAgICAgIC NuIL0MZUMbFJUkCQHuNKQkYIJoIPCzFJKwZSSrFZLbOKUwZCOqBCLyVWXlMSOmVZLaTSEtWDQbWWPrCH AgICAgICAgICAgICAgICAgICAgICAgICAgICAgICAg DECzZVIjNHBbGVBiSK6ORZJpQJZiFTGoPRDpUHCnXGJsQBNtBQZcPKZxJYUfEPNwZYNxIYUwJURlCBYu DUBcFATvETWoMPKfMBCrUZMlIYRlVFHdNCHeOYQxNDNzNUNvYQZdWQNnJRObHNQeSBXhAYTgMA0WEXRy ICAgICAgICAgICAgICAgICAgICAgICAgICAgICAgIC AgICAgICAgICAgICAgICAgICAgICAgICAgICAgICAgICAgICAgICAgICAgICAgICAgICAgICAgICAgIC WvLYYaTG6QWAYrYREiTKRpVWLjAUFeGQFjSUWhSNTkKTDqFURsHLBlEJIqHHPkFZHqQREmWIJzSCBrHZ AgICAgICAgICAgICAgICAgICAgICAgICAgICAgICAg YSHgNIOkCNIvZVPfDSYpYB0LHKNxOZMgHSQzNZLcTDLnZALlESSlVAIwNQCrKFMyLDPuGGVrKZDnNPPw UYHoWHPwERSzPARvTZRzHZWrDQLtBGWbBEWnUZRdIPPqTSYiVLQsKXZqXYIkWSXsBZOgIYXxWPWhPV4X FH07yHPub3J6FBJuEJ7ycej/Dk7IRAcijyAvyGEaMM 1GYeKsWT5juw1NTgMhWK6cph0YQRwBSpDiJ3H8uUSlERJtYJRRNkHsW42gSQwmMu06CVbhETDeItOaJH r1Zc1SJmAdU7icOVHgIlU3HOVwAxHqWYjvII5Yo4HifLRcKRt+Ac5OMR2np6XkVDabCuBmWR3jyu0SOZ bFKiLfY3N1sTAzD3D3BMzfEx7GUPGqEBNsKpYfWYGQ PElkAT1VPG4iofS1XE7FfSGxBPBxZCIczGMsAXd0D39otOMcPUcsQY0JMXG+Shemar+Zv4SWAAxSVMxHUVw NpEiJDYEFnDvA76jbYKlQMXmCAFxKNMsJr0DDRHxX6KtwpMewWtponDiXORhTGGJLC9ASCcuyyEqoFUj tAaoPB20kLnoLZ3JPm0ZTiHoVJ3olb7BmHZqQk2PAY ToZR1NXOJeDAWgKEDwJOS7VEKsChGnKRanIKUhQZKcHVQ4XUBjLVQcQB7WSxZtDXVcMGb0JJmsTRYqVE Ddia2WJOHyZGLrSEe8WyCvXUNeWUWqWMlgEFMdDSJsBOtkEKXdAXUrRT4TZaKqCLMhCCZ6WAyiMYTnGQ Pcig5RBHNiEEQpLfD9SWZrKHMyBLExYUuxXOCvMZN8 KTZoYHAaSFShKX5ZOmBbWOWxOYGaNAZnZWNhIYUhfg2EVSYsAFXhYTJ6QhZjMFRxKTRuWCqgFYBvPMM0 GVC9QGVvLTQbPJ1ZTpDpIOZmAJY1DCFfKFWmUPNxqw4DEIChWICeCWucLqOxJDIaPMEcATjcGDAiIIW8 PbfgNHElKPZkXE0ULgJzOPQwMUT0DXMaORIxWEYcuk 4IOVJxHXUsYbV1QzJvMAAtCZOjDMhbXJUyCAK6ULa0QWHpFPYvJI1FVjOlKOAeERh9OrIvVNHxHMAxao 6LYSRgFMLnRDV5YuNfHRDsIRAfVIgvAMMpPMH9IiO8ISWsTOBxIF5KXgZsRXLeTKn3PyEbXBMrRZEkpc 2SPNJeBONeGZwwMBMwITTlZQWmPMxkWKJhDDN8UCP2 SIVzUQMbPJ6PQhUoSMVzTLW7UuPiOVLdWIMkeh8AtXAdnAcmpk7CKCgTNv3SlImlCGK6IVllHg7zkTGq EgXqFFNVHh8AylRsPXHsFWWVEExdRKTfBHgfPQQ7MIY5N1SjJHBpPdCtNHP9LEt0EINbDAZjQIx3EjF8 PQFiFiAsJkEfN2G5NZYuZSC6UkO8BWueYBBoI9XkLF g+HG3oIQr+Pq1Fm1IoilK9doLeTJhoPQC9Yo6XVBWIU0GVLy== ID Date Data Source [id number] 02/17/2021 06:58:[address] [facility] Name Value Range Interpretation Code Description Data Wilda rce(s) Supporting Document(s) &PDF [facility] DKSPPd7pVhYOFmXg43/ABWyoBENrf4VhQBcgZCx2FTujJSXuZ6BolNwsLUgCEAQKSE7LAFeNUBGoLPC4 FcG [file] z/psychiatric np+QDnFIErTO4k1yKm0MXpoueXsBD52hk2kunOLvifJ0SEfQqYmTEb2sb6GBDZpjCG3+JnomKMCTQH [file] ICAgICAgICAgICAgICAgICAgICAgICAgICAgICAgICAgICAgICAgICAgICAgICAgICAgICAgICAgICAg ICAgICAgICAgICAgICAgICAgICANCiAgICAgICAgICAgICAgICAgICAgICAgICAgICAgICAgICAgICAg ICAgICAgICAgICAgICAgICAgICAgICAgICAgICAgIC AgICAgICAgICAgICAgICAgICAgICAgICAgICAgICANCiAgICAgICAgICAgICAgICAgICAgICAgICAgIC AgICAgICAgICAgICAgICAgICAgICAgICAgICAgICAgICAgICAgICAgICAgICAgICAgICAgICAgICAgIC AgICAgICAgICAgICANCiAgICAgICAgICAgICAgICAg ICAgICAgICAgICAgICAgICAgICAgICAgICAgICAgICAgICAgICAgICAgICAgICAgICAgICAgICAgICAg ICAgICAgICAgICAgICAgICAgICAgICANCiAgICAgICAgICAgICAgICAgICAgICAgICAgICAgICAgICAg ICAgICAgICAgICAgICAgICAgICAgICAgICAgICAgIC AgICAgICAgICAgICAgICAgICAgICAgICAgICAgICAgICANCiAgICAgICAgICAgICAgICAgICAgICAgIC AgICAgICAgICAgICAgICAgICAgICAgICAgICAgICAgICAgICAgICAgICAgICAgICAgICAgICAgICAgIC AgICAgICAgICAgICAgICANCiAgICAgICAgICAgICAg ICAgICAgICAgICAgICAgICAgICAgICAgICAgICAgICAgICAgICAgICAgICAgICAgICAgICAgICAgICAg ICAgICAgICAgICAgICAgICAgICAgICAgICANCiAgICAgICAgICAgICAgICAgICAgICAgICAgICAgICAg ICAgICAgICAgICAgICAgICAgICAgICAgICAgICAgIC AgICAgICAgICAgICAgICAgICAgICAgICAgICAgICAgICAgICANCiAgICAgICAgICAgICAgICAgICAgIC AgICAgICAgICAgICAgICAgICAgICAgICAgICAgICAgICAgICAgICAgICAgICAgICAgICAgICAgICAgIC AgICAgICAgICAgICAgICAgICANCiAgICAgICAgICAg ICAgICAgICAgICAgICAgICAgICAgICAgICAgICAgICAgICAgICAgICAgICAgICAgICAgICAgICAgICAg ICAgICAgICAgICAgICAgICAgICAgICAgICAgICANCjw/sUSrE0znaPOqgeT0Q0uqIw7HUz3IDL0jj3Nk RAPbRAzkydOmUjdHYfUvKMAbCrgTEls2GIhbEK3RpG KkS6DxQ9GiCSbkWB3ICBXqTUXyoFVyTJYcHATiTaQ0TRTdDOzqQT7EoNOjZByxHUNtBQHvMwCkMRVdAJ 4JTKTxS313yvBuSu9UAk0DFwWnTY9kuj7JXeXeDQRbRvoXEcm0HVpsDV8FqXGnQ0NbkWNqi6xQSsMeI8 YOEOYoUPZzIj4WFLEcDaOfZQKjCZncHD2uATWdEHXM zEkakrW7YK0VGD6bzuKdZK1DRoCsXl2cGg8KKgWtG5CvJ5GfORTlMJULBNpcMN2NZQZgDJW8ZCDfPYMg XWFJJtImE58kPD5MF9Lro13nOqK4ILZoWzRqLKlyTT75iTnuxeUtdZIaqArkBG2MVl3+DQplbmRvYmoN HclrIGJNArRlVoTTXpUbDVKtLEBzVEJvTzS7RhRxLn 6LEKGeOIAgXCDlRfCmBMXbMLPrYVviWWIaEPYpNYR7YVPzTDGmPX1EUnYmFFQuOcE6XXIvCZJqURBizh 9MPBTlOPCdTLG1CFBqLVGvVLVlOUjjWCRhDARjZmGnRMOhODRhFG1WRtFcICGlHEU1VNRnZJMxYGCqdn 8CUKLfMMVoZJT1MmTaGWKwFNRrXXgzQIKvILO2Tjcf VXOgMTBpXG4ACyJvEBDgPJK4XcsoIPBrLXZalb3PZGObOTEjWnnkVJExJSFgYBOaYCpaBINtDOR3JBL2 DVHwWYLcFC3VCzYqIKNnFYq8HtFmEMGwQBHpja5NLRAzVMRkSXQ0MsWmBTLlKTYnHWwyHZKzHKO1PxF0 XRAlZMQyAV7HFiStXLFiEWnjVgWlNJOcHCHmdr7LFO PjQZTsEYCnQGWeCNGhQNFnLZtyGJMpEHJ9FjW1JYGkKVEbQK1PDfHcILIwIWW3OOYdCVMpZXWjhv4WXF KwCQYhSBIgQJAaTMIyCSAoPIylCZMcMRX4PZZaVWJpKCBhMV7KVcTiYFFuJwYzOUgbNOVlOEMtun5HLX KrLHHxWUYkDIImVCEcMSYoJMopDQYwQFC0RVQkONHi URFsUC0YMuBpRPYlXzF6UgynTIWvICUslm0UFOTkDKSdKtO1TDJqAFOmLILdEZogCFNlMIN4QswcUDOt IXClOP8RSqEpBKLdIgl8AGrdCNJhXXQune1VDSAyDLI1VkF1StBlBDOuQJYxMAzvMKByLNJ4ZSBtZZWw LNJqPA4EJvPtIIYkEIJ5RtUuKGDuFHOxgx4ZANFaEG Y2SxC6KLUvNOIdNBWxXIwlEKQbOUG1SWJ9DDQsBYLhKK2GFkOmXFVbMkB8NwEnTEEhHHKqtt3PEPOcYL K3OJHsYBJtKDJdPKUqYPkaISLlNJSrZEO7LEFoYUPmEW8EPlGgNTjaDUENOpn9IEchR8u7XPTeVv9OJ6 Zwd7UlBiHaLSTQUFwjFK5zobTeYMWuRw1ZX2gEQlr7 VdjdSoqgGPO7QKPqLdR0ENxuISn2LYFcTGnmUVMqVT1uAYGaIDPbFxFfRRG6WHNlKPW9P2Y1Qvi4TBW6 UNBtF4B3HxYgPS9RZx5RKsJ8XPP0yGGqWq0HZvRiZAOZWmMwRW2BREd= ID Date Data Source [id number] 10/13/2020 12:00:00 AM EST [facility] Name Value Range Interpretation Code Description Data Wilda rce(s) Supporting Document(s) SARS coronavirus 2 RNA [facility] This lab was ordered by [facility] [facility] and rep orted by [facility]. Procedure Social History Code Duration Value Status Description Data Source(s ) Smoking 08/13/2021 12:00:00 AM EDT Patient is a former smoker completed Patient is a former smoker [facility] ([facility]) Alcohol intake 06/18/2021 12:00:00 AM EDT Ex-drinker (finding) comp leted Ex- drinker (finding) [facility] Alcohol intake 03/18/2021 12:00:00 AM EDT Ex-drinker (finding) comp leted Ex- drinker (finding) [facility] Tobacco use and exposure 12/30/2020 12:00:00 AM EST Never used co mpleted Never used [facility] Smoking 12/30/2020 12:00:00 AM EST Never smoker completed Never s [facility] Alcohol intake 12/30/2020 12:00:00 AM EST Current drinker of al cohol (finding) completed Current drinker of alcohol (finding) [facility] Smoking 12/30/2020 12:00:00 AM EST Never smoker completed Never s [facility] Smoking 09/17/2020 12:00:00 AM EST Patient has never smoked co mpleted Patient has never smoked [facility] ([facility] Vital Signs ID Date Data Source UNK Name Value Range Interpretation Code Description Data Source(s) Systolic blood pressure 108 mm[Hg] 108 mm[Hg] [facility] Body surface area Derived from formula 2.18 m2 2.18 m2 [facility] ([facility]) Heart rate 66 /min 66 /min [facility] ([facility]) Diastolic blood pressure 60 mm[Hg] 60 mm[Hg] [facility] ([facility]) Body weight 238.00 [lb_av] 238.00 [lb_av] [facility] Oxygen saturation in Arterial blood by Pulse oximetry 98 % 98 % [facility] ([facility]) Body height 67 [in_i] 67 [in_i] [facility] ([facility]) 5'7" Body mass index (BMI) [Ratio] 37.3 kg/m2 37.3 k g/m2 [facility] ([facility]) [place] body weight 148 [lb_av] 148 [lb_av] [facility] ([facility], ) Body weight 107.957 kg 107.957 kg [facility] ([facility]) Systolic blood pressure 114 mm[Hg] 114 mm[Hg] [facility] Diastolic blood pressure 76 mm[Hg] 76 mm[Hg] [facility] Heart rate 66 /min 66 /min [facility] Body height 167.[address] [facility] Body weight 113.[address] [facility] Body mass index (BMI) [Ratio] 40.51 kg/m2 40.51 kg/m2 [facility] Oxygen saturation in Arterial blood by Pulse oximetry 98 % 98 % [facility] Body mass index (BMI) [Ratio] 39.9 kg/m2 39.9 k g/m2 [facility] ([facility]) Body weight 255.00 [lb_av] 255.00 [lb_av] [facility] ([facility]) Body weight 115.668 kg 115.668 kg [facility] ([facility]) [place] body weight 148 [lb_av] 148 [lb_av] [facility] ([facility]) Body height 67 [in_i] 67 [in_i] [facility] ([facility]) 5'7" Body surface area Derived from formula 2.24 m2 2.24 m2 [facility] ([facility]) Oxygen saturation in Arterial blood by Pulse oximetry 98 % 98 % [facility] ([facility]) Body height 67 [in_i] 67 [in_i] [facility] ([facility]) 5'7" Body weight 255.00 [lb_av] 255.00 [lb_av] [facility] ([facility]) Body mass index (BMI) [Ratio] 39.9 kg/m2 39.9 k g/m2 [facility] ([facility]) [place] body weight 148 [lb_av] 148 [lb_av] [facility] ([facility]) Body weight 115.668 kg 115.668 kg [facility] ([facility]) Body surface area Derived from formula 2.24 m2 2.24 m2 [facility] ([facility]) Systolic blood pressure 120 mm[Hg] 120 mm[Hg] [facility] Diastolic blood pressure 60 mm[Hg] 60 mm[Hg] [facility] ([facility]) Heart rate 64 /min 64 /min [facility] ([facility]) Oxygen saturation in Arterial blood by Pulse oximetry 98 % 98 % [facility] ([facility]) Oxygen saturation in Arterial blood by Pulse oximetry 97 % 97 % [facility] ([facility]) Body height 67 [in_i] 67 [in_i] [facility] ([facility]) 5'7" Body weight 250.00 [lb_av] 250.00 [lb_av] [facility] Body weight 113.400 kg 113.400 kg [facility] ([facility]) Systolic blood pressure 126 mm[Hg] 126 mm[Hg] [facility] ([facility]) Diastolic blood pressure 82 mm[Hg] 82 mm[Hg] [facility] ([facility]) Heart rate 68 /min 68 /min [facility] ([facility]) Body mass index (BMI) [Ratio] 39.2 kg/m2 39.2 k g/m2 [facility] ([facility]) [place] body weight 148 [lb_av] 148 [lb_av] [facility] Body surface area Derived from formula 2.22 m2 2.22 m2 [facility] ([facility]) Heart rate 70 /min 70 /min [facility] Systolic blood pressure 100 mm[Hg] 100 mm[Hg] [facility] Body height 167.[address] [facility] Body weight 113.[address] [facility] Body mass index (BMI) [Ratio] 40.35 kg/m2 40.35 kg/m2 [facility] Diastolic blood pressure 60 mm[Hg] 60 mm[Hg] [facility] Oxygen saturation in Arterial blood by Pulse oximetry 98 % 98 % [facility] Systolic blood pressure 124 mm[Hg] 124 mm[Hg] [facility] Diastolic blood pressure 90 mm[Hg] 90 mm[Hg] [facility] Heart rate 86 /min 86 /min [facility] Body weight 112.[address] [facility] Body mass index (BMI) [Ratio] 40.19 kg/m2 40.19 kg/m2 [facility] Oxygen saturation in Arterial blood by Pulse oximetry 99 % 99 % [facility] Systolic blood pressure 118 mm[Hg] 118 mm[Hg] [facility] ([facility], ) Body weight 259.50 [lb_av] 259.50 [lb_av] [facility] ([facility], ) Body mass index (BMI) [Ratio] 40.6 kg/m2 40.6 k g/m2 [facility] ([facility], ) Diastolic blood pressure 68 mm[Hg] 68 mm[Hg] [facility] ([facility], ) Body height 67 [in_i] 67 [in_i] [facility] ([facility], ) 5'7" [place] body weight 148 [lb_av] 148 [lb_av] [facility], ) Heart rate 78 /min 78 /min [facility] ([facility]) Oxygen saturation in Arterial blood by Pulse oximetry 98 % 98 % [facility] ([facility]) Body temperature 97.5 [degF] 97.5 [degF] [facility] ([facility]) Body weight 117.709 kg 117.709 kg [facility] ([facility]) Body surface area Derived from formula 2.26 m2 2.26 m2 [facility] ([facility], ) Systolic blood pressure 120 mm[Hg] 120 mm[Hg] [facility] Diastolic blood pressure 92 mm[Hg] 92 mm[Hg] [facility] Heart rate 80 /min 80 /min [facility] Body weight 113.[address] [facility] Oxygen saturation in Arterial blood by Pulse oximetry 98 % 98 % [facility] Systolic blood pressure 122 mm[Hg] 122 mm[Hg] [facility] ([facility], ) Diastolic blood pressure 70 mm[Hg] 70 mm[Hg] [facility] ([facility]) Heart rate 92 /min 92 /min [facility] ([facility]) Oxygen saturation in Arterial blood by Pulse oximetry 98 % 98 % [facility] ([facility]) [place] Body height 67 [in_i] 67 [in_i] [facility] ([facility]) 5'7" Body weight 242.00 [lb_av] 242.00 [lb_av] [facility] Body mass index (BMI) [Ratio] 37.9 kg/m2 37.9 k g/m2 [facility] ([facility]) [place] body weight 148 [lb_av] 148 [lb_av] [facility] Body weight 109.771 kg 109.771 kg [facility] ([facility]) Body surface area Derived from formula 2.19 m2 2.19 m2 [facility] ([facility]) Body height 66 [in_i] 66 [in_i] [facility] 5'6" Systolic blood pressure 132 mm[Hg] 132 mm[Hg] [facility] ([facility] Diastolic blood pressure 84 mm[Hg] 84 mm[Hg] [facility] ([facility] Body weight 252.25 [lb_av] 252.25 [lb_av] [facility] ([facility] Heart rate 102 /min 102 /min [facility] ([facility] Body temperature 97.6 [degF] 97.6 [degF] [facility] ([facility] Respiratory rate 18 /min 18 /min [facility] ( [facility] Oxygen saturation in Arterial blood by Pulse oximetry 99 % 99 % [facility] ([facility] [place] body weight 142 [lb_av] 142 [lb_av] [facility] ([facility] Body mass index (BMI) [Ratio] 40.7 kg/m2 40.7 k g/m2 [facility] ([facility] Patient Treatment Plan of Care Planned Activity Planned Date Details Description Data Source (s) Aspirin 325 MG Delayed Release Oral Tablet 06/18/2021 12:00:[address] [facility] Metoprolol Tartrate 50 MG Oral Tablet 05/07/2021 12:00:[address] [facility] Flecainide Acetate 50 MG Oral Tablet 05/07/2021 12:00:[address] [facility] Aspirin 325 MG Delayed Release Oral Tablet 03/18/2021 12:00:[address] [facility] Metoprolol Tartrate 50 MG Oral Tablet 03/18/2021 12:00:[address] [facility] Flecainide Acetate 50 MG Oral Tablet 03/18/2021 12:00:[address] [facility] Flecainide Acetate 50 MG Oral Tablet 03/11/2021 12:00:[address] [facility] Metoprolol Tartrate 50 MG Oral Tablet 03/09/2021 12:00:[address] [facility] Metoprolol Tartrate 25 MG Oral Tablet 02/19/2021 12:00:[address] [facility]
--- OUTSIDE RECORDS SUMMARY | 2021-09-18 17:48 | CCD | Continuity of Care Document ---
Author Author Marlo STORM P.Vikas Organization Unknown Address [address] [place] [address] Phone [phone] Care Team Providers Care Take Out Waiter/Waitress Name Role Phone Corrine Williamson AUTM [phone] AUTM Unavailable Mary Beth Godwin M.D. AUTM [phone] Problems Active Problems Provider Date Obstructive sleep [...] lb BMI (Body Mass Index) 37.3 kg/m2 [place] Body Weight 148 lb Weight 107.957 kg BSA (Body Surface Area) 2.18 m2 05/13/2021 1:49pm BP Systolic 120 mmHg BP Diastolic 60 mmHg Heart Rate 64 /min O2 % BldC Oximetry 98 % Height 67 inches 5'7" Weight 255.00 lb BMI (Body Mass Index) 39.9 kg/m2 [place] Body Weight 148 lb Weight 115.668 kg BSA (Body Surface Area) 2.24 m2 Results Description No Information Available Procedures Date Code Description Status 05/13/2021 47539 Office/Outpatient Established Lo w MDM 20-29 Min Completed 04/07/2021 49124 Office/Outpatient Established Lo w MDM 20-29 Min Completed Medical Devices Description No Information Available Encounters Type Date Location Provider Dx Diagnosis Office Visit 05/13/2021 2:00p [facility]/Thoracic Roya Aldrich G47.33 Obstructive sleep apnea (adult) (pediatr ic) Office Visit 04/07/2021 3:00p [facility] Roya Aldrich G47.33 Obstructive sleep [...] 02/11/2022 2:00 pm - Roya Aldrich at [facility] 08/13/2021 - Roya Aldrich* G47.33 Obstructive sleep apnea (adult) (pediatric) * * Follow up:* Follow up in 6 months with download Functional Status Description No Information Available Mental Status Description No Information Available Referrals Refer to Reason for Referral Status Appt Date Juan Pablo Storm R.P.A.-C. MELCHOR Scheduled 05/2021 [facility] [address] [place] [address] [phone]
--- OUTSIDE RECORDS SUMMARY | 2021-09-18 17:48 | CCD | Continuity of Care Document ---
Author Author Marlo STORM P.Vikas Organization Unknown Address [address] [place] [address] Phone [phone] Care Team Providers Care Cotton Grower Name Role Phone Corrine Williamson AUTM [phone] AUTM Unavailable Mary Beth Godwin M.D. AUTM [phone] Problems Active Problems Provider Date Obstructive sleep [...] lb BMI (Body Mass Index) 37.3 kg/m2 [place] Body Weight 148 lb Weight 107.957 kg BSA (Body Surface Area) 2.18 m2 05/13/2021 1:49pm BP Systolic 120 mmHg BP Diastolic 60 mmHg Heart Rate 64 /min O2 % BldC Oximetry 98 % Height 67 inches 5'7" Weight 255.00 lb BMI (Body Mass Index) 39.9 kg/m2 [place] Body Weight 148 lb Weight 115.668 kg BSA (Body Surface Area) 2.24 m2 Results Description No Information Available Procedures Date Code Description Status 08/13/2021 94838 Office/Outpatient Established Lo w MDM 20-29 Min Completed 05/13/2021 68436 Office/Outpatient Established Lo w MDM 20-29 Min Completed 04/07/2021 50209 Office/Outpatient Established Lo w MDM 20-29 Min Completed Medical Devices Description No Information Available Encounters Type Date Location Provider Dx Diagnosis Office Visit 08/13/2021 12:30p [facility] Pulmonary/Thoracic Lizzie AldrichAKenzie G47.33 Obstructive sleep apnea (adult) (pediatr ic) Office Visit 05/13/2021 2:00p [facility]monary/Thoracic Roya Aldrich G47.33 Obstructive sleep apnea (adult) (pediatr ic) Office Visit 04/07/2021 3:00p [facility] Pulmonary/Thoracic Zaira Aldrich.AKenzie G47.33 Obstructive sleep apnea (adult) (pediatr ic) Assessments Date Code Description Provider 08/13/2021 G47.33 Obstructive sleep apnea (adult) (pediatric) Roya Aldrich 05/13/2021 G47.33 Obstructive sleep apnea (adult) (pediatric) Roya Aldrich 04/07/2021 G47.33 Obstructive sleep apnea (adult) (pediatric) Roya Aldrich 04/03/2021 G47.33 Obstructive sleep apnea (adult) (pediatric) Roya Aldrich Plan of Treatment Future Appointment(s):* 02/11/2022 2:00 pm - Roya Aldrich at [facility] Pulmonary/Thoracic 08/13/2021 - Roya Aldrich* G47.33 Obstructive sleep apnea (adult) (pediatric) * * Follow up:* Follow up in 6 months with download Functional Status Description No Information Available Mental Status Description No Information Available Referrals Refer to Reason for Referral Status Appt Date Juan Pablo Storm R.P.A.-C. MELCHOR Scheduled 05/2021 [facility] [address] [place] [address] [phone]
--- OUTSIDE RECORDS SUMMARY | 2021-09-18 17:48 | CCD | Continuity of Care Document ---
Author Author Marlo STORM P.Vikas Organization Unknown Address [address] [place] [address] Phone [phone] Care Team Providers Care Digital Cartographic Technician Name Role Phone Corrine Williamson AUTM AUTM Unavailable Mary Beth Godwin M.D. AUTM [phone] Problems Active Problems Provider Date Obstructive sleep [...] lb BMI (Body Mass Index) 37.3 kg/m2 [place] Body Weight 148 lb Weight 107.957 kg BSA (Body Surface Area) 2.18 m2 05/13/2021 1:49pm BP Systolic 120 mmHg BP Diastolic 60 mmHg Heart Rate 64 /min O2 % BldC Oximetry 98 % Height 67 inches 5'7" Weight 255.00 lb BMI (Body Mass Index) 39.9 kg/m2 [place] Body Weight 148 lb Weight 115.668 kg BSA (Body Surface Area) 2.24 m2 Results Description No Information Available Procedures Date Code Description Status 05/13/2021 79646 Office/Outpatient Established Lo w MDM 20-29 Min Completed 04/07/2021 56359 Office/Outpatient Established Lo w MDM 20-29 Min Completed Medical Devices Description No Information Available Encounters Type Date Location Provider Dx Diagnosis Office Visit 05/13/2021 2:00p [facility]/Thoracic Roya Aldrich G47.33 Obstructive sleep apnea (adult) (pediatr ic) Office Visit 04/07/2021 3:00p [facility] Pulmonary/Thoracic Roya Aldrich G47.33 Obstructive sleep apnea (adult) (pediatr ic) Assessments Date Code Description Provider 08/13/2021 G47.33 Obstructive sleep apnea (adult) (pediatric) Roya Aldrich 05/13/2021 G47.33 Obstructive sleep apnea (adult) (pediatric) Roya Aldrich 04/07/2021 G47.33 Obstructive sleep apnea (adult) (pediatric) Roya Aldrich 04/03/2021 G47.33 Obstructive sleep apnea (adult) (pediatric) Roya Aldrich Plan of Treatment Future Appointment(s):* 02/11/2022 2:00 pm - Roya Aldrich at [facility] Pulmonary/Thoracic 08/13/2021 - Roya Aldrich* G47.33 Obstructive sleep apnea (adult) (pediatric) * * Follow up:* Follow up in 6 months with download Functional Status Description No Information Available Mental Status Description No Information Available Referrals Refer to Reason for Referral Status Appt Date Juan Pablo Storm R.P.A.-C. MELCHOR Scheduled 05/2021 [facility] [address] [place] [address] [phone]
--- NOTE | 2021-09-18 18:19 | REP ---
INDICATION: injury COMPARISON: None. TECHNIQUE: AP, lateral, bilateral oblique views. FINDINGS: Lateral swelling. No acute fracture or dislocation. Joint spaces and ankle mortise are intact. IMPRESSION: Lateral swelling. No acute fracture. <Electronically signed by Tan Gaxiola > 09/18/21 [id number]
--- OUTSIDE RECORDS SUMMARY | 2021-09-18 22:03 | CCD ---
Author Author [facility] Organization [facility] Address Unknown Phone Unavailable Care Team Providers Care Toolman Name Role Phone Clay Montour Corrine PA-C Unavailable Unavailabl e Petrancosta, Montour Corrine PA-C Unavailable Unavailabl e Petrancosta, Montour Corrine PA-C Unavailable Unavailabl e Petrancosta, Montour Corrine PA-C Unavailable Unavailabl e Petrancosta, Montour Corrine PA-C Unavailable Unavailabl e Petrancosta, Montour Corrine PA-C Unavailable Unavailabl e Petrancosta, Montour Corrine PA-C Unavailable Unavailabl e Petrancosta, Montour Corrine PA-C Unavailable Unavailabl e Petrancosta, Montour Corrine PA-C Unavailable Unavailabl e Petrancosta, Montour Corrine PA-C Unavailable Unavailabl e Petrancosta, Montour Corrine PA-C Unavailable Unavailabl e Petrancosta, Montour Corrine PA-C Unavailable Unavailabl e Petrancosta, Montour Corrine PA-C Unavailable Unavailabl e Petrancosta, Montour Corrine PA-C Unavailable Unavailabl e Petrancosta, Montour Corrine PA-C Unavailable Unavailabl e Petrancosta, Montour Corrine PA-C Unavailable Unavailabl e Petrancosta, Montour Corrine PA-C Unavailable Unavailabl e Petrancosta, Montour Corrine PA-C Unavailable Unavailabl e Petrancosta, Montour Corrine PA-C Unavailable Unavailabl e Petrancosta, Montour Corrine PA-C Unavailable Unavailabl e Petrancosta, Montour Corrine PA-C Unavailable Unavailabl e Petrancosta, Montour Corrine PA-C Unavailable Unavailabl e Petrancosta, Montour Corrine PA-C Unavailable Unavailabl e Petrancosta, Montour Corrine PA-C Unavailable Unavailabl e Petrancosta, Montour Corrine PA-C Unavailable Unavailabl e Meriwether, V DANIEL PA-C Unavailable Unavailable Meriwether, V DANIEL PA-C Unavailable Unavailable Lorene, V DANIEL PA-C Unavailable Unavailable Lorene, V DANIEL PA-C Unavailable Unavailable Meriwether, V DANIEL PA-C Unavailable Unavailable Meriwether, V DANIEL PA-C Unavailable Unavailable Meriwether, V DANIEL PA-C Unavailable Unavailable Meriwether, V DANIEL PA-C Unavailable Unavailable Lorene, V DANIEL PA-C Unavailable Unavailable Lorene, V DANIEL PA-C Unavailable Unavailable Lorene, V DANIEL PA-C Unavailable Unavailable Meriwether, V DANIEL PA-C Unavailable Unavailable Lorene, V DANIEL PA-C Unavailable Unavailable Meriwether, V DANIEL PA-C Unavailable Unavailable Petrancosta, Montour Corrine PA-C Unavailable Unavailabl e Petrancosta, Montour Corrine PA-C Unavailable Unavailabl e Petrancosta, Montour Corrine PA-C Unavailable Unavailabl e Petrancosta, Montour Corrine PA-C Unavailable Unavailabl e Petrancosta, Montour Corrine PA-C Unavailable Unavailabl e Petrancosta, Montour Corrine PA-C Unavailable Unavailabl e Petrancosta, Montour Corrine PA-C Unavailable Unavailabl e Petrancosta, Montour Corrine PA-C Unavailable Unavailabl e Petrancosta, Montour Corrine PA-C Unavailable Unavailabl e Petrancosta, Montour Corrine PA-C Unavailable Unavailabl e Petrancosta, Montour Corrine PA-C Unavailable Unavailabl e Petrancosta, Montour Corrine PA-C Unavailable Unavailabl e Petrancosta, Montour Corrine PA-C Unavailable Unavailabl e Petrancosta, Montour Corrine PA-C Unavailable Unavailabl e Petrancosta, Montour Corrine PA-C Unavailable Unavailabl e Petrancosta, Montour Corrine PA-C Unavailable Unavailabl e Petrancosta, Montour Corrine PA-C Unavailable Unavailabl e Petrancosta, Montour Corrine PA-C Unavailable Unavailabl e Petrancosta, Montour Corrine PA-C Unavailable Unavailabl e Petrancosta, Montour Corrine PA-C Unavailable Unavailabl e Petrancosta, Montour Corrine PA-C Unavailable Unavailabl e Petrancosta, Montour Corrine PA-C Unavailable Unavailabl e Petrancosta, Montour Corrine PA-C Unavailable Unavailabl e Petrancosta, Montour Corrine PA-C Unavailable Unavailabl e Petrancosta, Montour Corrine PA-C Unavailable Unavailabl e STYLES, M [...] is protected by Article 27-F of the [facility] Public Health law. If you continue you may have access to information: Regarding HIV / AIDS; Provided by facilities licensed or operated by the [facility] Office of Mental Health; or Provided by the [facility] Office for People With Developmental Disabilities. If such information is present, then the following [facility] mandated warning applies: This information has been [...] law may result in a fine or mcc sentence or both. A general authorization for the release of medical or other information is NOT sufficient authorization for further disc losure. Encounters Encounter Providers Location Date Indications Data Source(s ) Outpatient Attender: AMANDA Sahu/Yared/Selvin/Tita dl 08/13/2021 12:30:00 PM EDT [facility] ([facility], ) Outpatient Referrer: DANIEL PHILIPPECT-SJP.SYR 01:06:17 PM EDT [facility] Outpatient Attender: DANIEL Francisferrer: [facility] PHILIPPEOSCAR-SJP.OSCAR 06/18/2021 12:59:55 PM EDT - 06/18/2021 01:54:47 PM EDT [facility] Outpatient Attender: AMANDA Sahu/[place]/Selvin/Rein dl 05/13/2021 02:00:00 PM EDT [facility] Outpatient Attender: AMANDA Sahu/[place]/Selvin/Rein dl 04/07/2021 03:00:00 PM EDT [facility] ([facility], ) Outpatient Attender: DANIEL Francisferrer: [facility] PHILIPPEOSCAR-SJP.OSCAR 03/18/2021 03:09:34 PM EDT - 03/18/2021 04:09:09 PM EDT [facility] Outpatient Referrer: DANIEL PHILIPPECT-SJP.SYR 12:00:00 AM EDT [facility] Outpatient Attender: DANIEL Francisferrer: [facility] LÓPEZ.OSCAR-SJP.OSCAR 03/09/2021 08:13:45 AM EDT - 03/09/2021 09:00:09 AM EDT [facility] Outpatient Referrer: DANIEL LÓPEZ.OSCAR-SJP.OSCAR 12:00:00 AM EDT [facility] Outpatient Attender: AMANDA Sahu/[place]/Selvin/Rein dl 01/27/2021 10:00:00 AM EDT [facility] ([facility] Outpatient Attender: DANIEL Francisferrer: [facility] LÓPEZ.OSCAR-SJP 12/30/2020 02:36:16 PM EST - 12/30/2020 04:01:42 PM EST [facility] Outpatient Attender: AMANDA Sahu/Yared/Selvin/Tita johnson 12/26/2020 12:00:00 PM EST [facility] ([facility] Outpatient Attender: Corrine Williamson PA-C Main Office 09/17/2020 12:30:00 PM EST [facility] ([facility] Immunizations Vaccine Date Status Description Data Source(s) COVID-19 VACCINE Moderna 04/20/2021 12:00:00 AM EDT completed [facility] Vaccine Series Complete: YESThis Data wa s Submitted to [facility] Via x[facility] qu [facility] you. COVID-19 VACCINE Moderna 03/23/2021 12:00:00 AM EDT completed [facility] Vaccine Series Complete: NOThis Data was Submitted to [facility] Via xiao qu [facility] you. Medications Medication Brand Name Start Date Product Form Dose Route Admi nistrative Instructions Pharmacy Instructions Status Indications Reaction Description Data Source(s) Aspirin 325 MG Delayed Release Oral Tablet aspirin 325 MG EC tablet aspirin 325 MG EC tablet 06/18/2021 12:00:00 AM EDT 325 mg Oral activ e Take 1 tablet (325 mg total) by mouth daily [facility] Flecainide Acetate 50 MG Oral Tablet flecainide (TAMBO COR) 50 MG tablet flecainide (TAMBOCOR) 50 MG tablet 05/07/2021 12:00:00 AM EDT 50 mg Oral active Take 1 tablet (50 mg total) by m outh 2 (two) times a day [facility] Metoprolol Tartrate 50 MG Oral Tablet me toprolol tartrate (LOPRESSOR) 50 MG tablet metoprolol tartrate (LOPRESSOR) 50 MG tablet 05/07/2021 12:0 0:00 AM EDT 50 mg Oral active Take 1 tablet (5 0 mg total) by mouth 2 (two) times a day [facility] Flecainide Acetate 50 MG Oral Tablet flecainide (TAMBO COR) 50 MG tablet flecainide (TAMBOCOR) 50 MG tablet 03/18/2021 12:00:00 AM EDT 50 mg Oral active Take 1 tablet (50 mg total) by m outh 2 (two) times a day [facility] Metoprolol Tartrate 50 MG Oral Tablet me toprolol tartrate (LOPRESSOR) 50 MG tablet metoprolol tartrate (LOPRESSOR) 50 MG tablet 03/18/2021 12:0 0:00 AM EDT 50 mg Oral active Take 1 tablet (5 0 mg total) by mouth 2 (two) times a day [facility] Aspirin 325 MG Delayed Release Oral Tablet aspirin 325 MG EC tablet aspirin 325 MG EC tablet 03/18/2021 12:00:00 AM EDT 325 mg Oral abort ed Take 1 tablet (325 mg total) by mouth daily [facility] Flecainide Acetate 50 MG Oral Tablet flecainide (TAMBO COR) 50 MG tablet flecainide (TAMBOCOR) 50 MG tablet 03/11/2021 12:00:00 AM EDT 50 mg Oral aborted Take 1 tablet (50 mg total) by m outh 2 (two) times a day [facility] Metoprolol Tartrate 50 MG Oral Tablet me toprolol tartrate (LOPRESSOR) 50 MG tablet metoprolol tartrate (LOPRESSOR) 50 MG tablet 03/09/2021 12:0 0:00 AM EDT 50 mg Oral aborted Take 1 tablet (5 0 mg total) by mouth 2 (two) times a day [facility] Metoprolol Tartrate 25 MG Oral Tablet me toprolol tartrate (LOPRESSOR) 25 MG tablet metoprolol tartrate (LOPRESSOR) 25 MG tablet 02/19/2021 12:0 0:00 AM EDT 25 mg Oral aborted Take 1 tablet (2 5 mg total) by mouth 2 (two) times a day [facility] CPAP 02/11/2021 12:00:00 AM EDT active [facility] ([facility]) No Active Medications 12/26/2020 12:00:00 AM EST completed [facility] ([facility]) Insurance Providers Payer name Policy type / Coverage type Policy ID Covered republican ID Covered republican's relationship to martinez Policy Martinez Plan Information [facility] COMMUN[facility]AN [facility] [id number] SP [id number] [facility] MEDICAID [id number] Mansi [id number] [facility] MEDICAID [id number] xxxxxxxxx [id number] SELF PAY ONLY [id number] SP [id number] [facility] FROYLAN X -[facility] [id number] Problems, Conditions, and Diagnoses Code Display Name Description Problem Type Effective Dates Data Source(s) E66.01 Morbid (severe) obesity due to excess ca lories Morbid (severe) obesity due to excess ca Diagnosis 06/18/2021 12:59:55 PM EDT [facility] I48.0 Paroxysmal atrial fibrillation Paroxysmal atrial fibri llation Diagnosis 06/18/2021 12:59:55 PM EDT [facility] E66.09 Other obesity due to excess calories Oth er obesity due to excess calories Diagnosis 03/09/2021 08:13:45 AM EDT [facility] R00.2 Palpitations Palpitations Diagnosis 03/09/2021 08:13:45 A M EDT [facility] I48.0 Paroxysmal atrial fibrillation Paroxysmal atrial fibri llation [id number] 03/18/2021 12:00:00 AM EDT [facility] G47.33 Obstructive sleep apnea syndrome Obstructive sle ep apnea syndrome Problem 01/27/2021 12:00:00 AM EDT [facility] ([facility], ) E66.01 Morbid obesity Morbid obesity [id number] 12/30/2020 12:00: 00 AM EST [facility] R00.2 Palpitations Palpitations [id number] 12/30/2020 12:00:00 A M [facility] Surgeries/Procedures Procedure Description Date Indications Data Source(s) OFFICE OUTPATIENT VISIT 15 MINUTES 08/13/2021 12:00:00 AM EDT [facility] ([facility]) POCT AMB EKG <td>POCT AMB EKG</td><td>Rou ines</td><td>06/18/2021 1:18 PM EDT</td><td> Paroxysmal atrial fibrillation</td><td> </td> 06/18/2021 01:18:00 PM EDT Paroxysmal atrial fibrillation [facility] Paroxysmal atrial fibrillation OFFICE OUTPATIENT VISIT 15 MINUTES 05/13/2021 12:00:00 AM EDT [facility] ([facility], ) OFFICE OUTPATIENT VISIT 15 MINUTES 04/07/2021 12:00:00 AM EDT [facility] ([facility], ) POCT AMB EKG <td>POCT AMB EKG</td><td>Rou ines</td><td>03/18/2021 4:25 PM EDT</td><td> Palpitations</td><td> </td> 03/18/2021 04:25:00 PM EDT Palpitations [facility] Palpitations ECG ROUTINE ECG W/LEAST 12 LDS W/I&R <td>POCT AMB EKG</td><td>Routine</td><td>03/09/2021 8:52 AM EDT</td><td> Palpitations</td><td> </td> 03/09/2021 08:52:00 AM EDT Palpitations [facility] Palpitations OFFICE OUTPATIENT VISIT 15 MINUTES 01/27/2021 12:00:00 AM EDT [facility] ([facility], ) POCT AMB EKG <td>POCT AMB EKG</td><td>Rou ines</td><td>12/30/2020 4:10 PM EST</td><td> Palpitations</td><td> </td> 12/30/2020 09:10:00 PM EST Palpitations [facility] Palpitations OFFICE OUTPATIENT NEW 30 MINUTES 12/26/2020 12:00:00 A M EST [facility] ([facility], ) Brief Emotional/Behav Assessment W/ Scoring Doc Per Standard Inst 09/17/2020 12:00:00 AM EST [facility] ([facility] Results ID Date Data Source [id number] 06/23/2021 06:53:50 PM EDT [facility] Name Value Range Interpretation Code Description Data Wilda rce(s) Supporting Document(s) &PDF [facility] POFBKi9iAlBJFmQv49/YZYeyLFEbr1NfYHtcQMl8NArhNJRxP5JybSclKLoKVEYOZR2LJJpVHBUsHAR0 FcG [file] ICAgICAgICAgICAgICAgICAgICAgICAgICAgICAgICAgICAgICAgICAgICAgICAgICAgICAgICAgICAg ICANCiAgICAgICAgICAgICAgICAgICAgICAgICAgIC AgICAgICAgICAgICAgICAgICAgICAgICAgICAgICAgICAgICAgICAgICAgICAgICAgICAgICAgICAgIC AgICAgICAgICAgICANCiAgICAgICAgICAgICAgICAgICAgICAgICAgICAgICAgICAgICAgICAgICAgIC AgICAgICAgICAgICAgICAgICAgICAgICAgICAgICAg ICAgICAgICAgICAgICAgICAgICAgICANCiAgICAgICAgICAgICAgICAgICAgICAgICAgICAgICAgICAg ICAgICAgICAgICAgICAgICAgICAgICAgICAgICAgICAgICAgICAgICAgICAgICAgICAgICAgICAgICAg ICAgICANCiAgICAgICAgICAgICAgICAgICAgICAgIC AgICAgICAgICAgICAgICAgICAgICAgICAgICAgICAgICAgICAgICAgICAgICAgICAgICAgICAgICAgIC AgICAgICAgICAgICAgICANCiAgICAgICAgICAgICAgICAgICAgICAgICAgICAgICAgICAgICAgICAgIC AgICAgICAgICAgICAgICAgICAgICAgICAgICAgICAg ICAgICAgICAgICAgICAgICAgICAgICAgICANCiAgICAgICAgICAgICAgICAgICAgICAgICAgICAgICAg ICAgICAgICAgICAgICAgICAgICAgICAgICAgICAgICAgICAgICAgICAgICAgICAgICAgICAgICAgICAg ICAgICAgICANCiAgICAgICAgICAgICAgICAgICAgIC AgICAgICAgICAgICAgICAgICAgICAgICAgICAgICAgICAgICAgICAgICAgICAgICAgICAgICAgICAgIC AgICAgICAgICAgICAgICAgICANCiAgICAgICAgICAgICAgICAgICAgICAgICAgICAgICAgICAgICAgIC AgICAgICAgICAgICAgICAgICAgICAgICAgICAgICAg ICAgICAgICAgICAgICAgICAgICAgICAgICAgICANCiAgICAgICAgICAgICAgICAgICAgICAgICAgICAg ICAgICAgICAgICAgICAgICAgICAgICAgICAgICAgICAgICAgICAgICAgICAgICAgICAgICAgICAgICAg ICAgICAgICAgICANCjw/aBEbF0yzhMHieyK6Z0rpTe 1SXu6AWQ7og1EoNHViLUmfawSpUbfDHmJzOZZqQxsGKaa9UOuzZX5BsUGtH4AmP5ByQCkzFV6EZXIwNS YhfRQfHGDnDAUxRiQ8UURmUHvpUU9LrHIoHSrsMGQkYYIrRmXzOCYqFW5ZAWNkW587akHlAg5VNt0GSe JoTS2iuf8BSuFyUHFhGtyXXlr8DWapWU4BtBAgC5Vt uEPzy6fFYmBaO4BWKDPrYSDaCv8JVWMkUlWwXJPaSFknWV5fSNXrBPQWzXbgfmU3HL0ZWL8zzxBaLB8C AoDzUp1wOh1LOaKbL8QyR9BtKKIvWHOWVDfqHC2HCOXpPFB5DXCtLOEuAMZUWhPpD12jLC8EE0Dmr91v QbZ6NWCjJiEePHlhPO93xIuodwAbqXGorAnmHZ6FFf 4+IOxkqtTtQqlLSpqkBLOADvLzOwYLSrXmUODyWVWlBPJaCfQ6DjRpPa8NFENvUYCuUHTjCmNlXCDyIF PiYCetDCEgLHR9HRW5EKLkAOSrDA7VMtCsYDRlDYl1HLveARJqVYQtxf7MGOXeSIIgDON3AZKwBGAuTX CaFBjhBNKzOECcAKYdMDBiDSIgJJ4XWnZwAGJmOSVz OFLdOUAyEOObvx2MOJXeHFOwRyD5XREaMFPpHVJjNKitUQNeRZF3Tip2IILqPYUhYB2LAfMjAJSlUUxm IxsrLCRpZXMqal7JAWWnAQCxJqRfPlKvWOIbDVVdDGesJALxONL0EvP8PROqJPLmFS7CDrHrDOZlRZk4 XyGeXGRbVPQuof9WLDGtBNJcPZm8EFGuHKJaWIQzJX ynAJImJUO2XMMjWWVyDKYcRL1XMxAmHGEwKVz8NpOfBLYuOVTjmt3ZXADeBJNnONLvBnYlGFVeREItAO ikAYDfKJClDqL4BSXrBHAbYO0MHzStDNJbWXPpCmGdOYLkOSHmlt2TMIJcIVFkXSD3KmNgPITpOYBvFE clHNAoIMQeHfL8VPWjPPMsME5RUvSoRVJyBHR2ZCQq VBUzBQHehg6HACLgFYJeTuryHNNcHAXaCSWtQVjnXWBjTCByQCCxTDDlXMOzVS9QTxDcSETmKKCcClUn IAAmOLWmrp7WEFZcTFTgYyA0QUSgUOSiJSQcSGlxZDHgGHMyTCxkHDGlJQZuDD1JXwYbMKLcQYLsJQzs NMXnZXUwfm1AGFQkNJExWJU7MzVaGUXsZFZgXAeiIQ XgMDV3HiX2HBCtSYWpLA3LFyOuLHNlPHYmEdGlFRNzIXIqyi5SFZEjNEGnUUZpCsMrNAThAIJmCUksFI NhWME1VWF9SZDcRSRwQQ3RThApHCAyCHK0BHJfGSDrTDHqtd6AZWNtKMVsFsIyWXAsRXFxOQReCCwuSF JiGMV7YDExXPFsIVRuAZ2GNoVuJIozNULJVvu9FRll L9b5MXTrVa9WD0Gtm0AbXkYnZINRYRbrOL8pwdInDOHdAm4YP2rEMvjhXTPtTIP3F7G9VDSoMRCxZtFn DFq8DFO7YLJlRlw7KC1tHZW9AHH1QKhqCCh7WGCiQSXoPRUkDRMnFgqwSvUjQDl6RgZmBT2KEu8QCmG4 UVG2kQZtHz6DPHpjEXFBCgPwJY8HFXb= ID Date Data Source [id number] 03/17/2021 10:38:11 AM EDT [facility]PATIE NT INFORMATIONPatient MRN Name Date of Age Gend*PT [id number] Marlo Harris 1995 25 years M ---PT Location Admission Date/Time Visit ID Attending Provider --- --- --- --- EPI ID CSN Admitting Pro vider [id number] ---Addended by: DANIEL ACOSTA on: 03/17/2021 10:38 AM Modules accepted: Level of Service Name Value Range Interpretation Code Description Data Wilda rce(s) Supporting Document(s) ID Date Data Source [id number] 03/17/2021 09:34:19 AM EDT [facility] Name Value Range Interpretation Code Description Data Wilda rce(s) Supporting Document(s) &PDF [facility] HYPLXj3dOmHRKjMb67/TYHbsNZAvk4MkWCuuLUt7WVngNFHjW4DjlQcmHDbSIPRXZI0DXOkUUPIcIMU6 FcG [file] BPTf/5+HxBV++f//senior electronics design engineer+322oOLRjD1H3CCx+XrK7GaCF/sBMU2GKq+n//80cVKbQYXwrJJ5lhD6N3Z46 cstiHVOc2cF5Pz+BAr0+J/+lQwX8f/8Hg3/WYAU6o5NCqEkMQ8JYL9cZz/keX65ztB3bWUKFCT4FLU5N WR0jn2VdIQKbQLlxjdPaTfrEQmXtCLHae6UoUEk3TD 7MRBWxYOyuNK1II3CyGER0R1E1EwK3fWYjJT1vD9LjCfAkNJ0otDe5S2QmtUHWTIJCj86fg71tclQgUF 6Td2luakUsDEEfL4HrnnrmRJCIZh6BoLB3dVLsYc4RXSowcAUvXPHfBOUqO7BoXMJmQE8HoEq6SAEhVx 7WbEB9AZRfD27zGF9YMfHuS7KFRSLtJHX1HOGnQwJM Cj4+MUykqSNqYW1WOhrQ+///PwMYBGRUQBADbvAfDECKEyqIV4+dDQchxL7kXd3TKqEtdv+hoYFE/xaQ qJ64+ELWghQFHqjRgTV+UBjogwarF2fAEksfv8jfW2Yt9hAV7JQnAunsWiDAlzYm+SZaDEWWK8v9DAxm uxYhzSOcES2STdVzWV8sno8GRcWwUIIjUddMVxnmKP mhzoRiBhnJRbXnAWLvMjfEPih8IVtsZH1Ztv7xC5V5AZurPSDFV1TwwWMoJG9pM5PWW7ewGFifPw6KKf ZbS7HssiMjQQleI7HoLOxkBFMJGPpoCRVhO6GrATFzAPNePc7BDHQoUT6GGdAgLEDkZHL+Oe4ASGKuBB 9secGmfEQ8QRYhbF0vCMYbCPTbTALJBvRwOXTjrN8q RZNvPbUxLFPUExCaYLQchG8nFbIfAwIdSZBFWyTcRGVaiM9bSxUiURGoFPEAMzHpSVWkmL1ePKKnDXDx PDIMIfDrCGJgiG3mCFJbFPZnIUF+Qq9UFDEqAJh5U2T3UAPvHDr2H8NEL7DQAVYvXDzbQQwdUFIjYWr0 P9X4PUVjZ7SLP7Xmhktyuo5+RB7PV22PZHZhOXl2L3 P1hPLtQ6S4yQqMgLO5WT3FFC1TmPt9iBQvjH6+MR7VF8FFEqGzIVp5M0O6bYOxZ4M4tMlCrJI7XB1SPK 6EaQIdBNWhheLxEw0wA0TXLHeVNrOJOCE3XP9MjVYxRS5NlPVHC5RopTNrQz8kFTijaMFthO8iVs5ySY ayJK2JUdUWZPvHOFR5PI7HxBGlRK7PuJCYF3WurLFg Cc2tNMztqHGkte6+CC0PPWZaWj5WOh1+ERobrpIlZyjIGlMcZCFim8GrNGy0FF9JCG4wtTrxYUU8Ut1I hAM2aTJjQ8wTWI6IiKOlJ65xjJKsRDThEa7NOnX7gfVqmK2EVD94oRFkr5Z3NGUjH0waRUevn64qFXwg CNxQRX7hMFWYEPpqXDopDIM4HiJcqaanIZVcGt8EQg GwUKx0iV2vqAK3SMQ3HiffvAUeMGozCiHvJiWoLyM6gPhtwtt4CHjwJE2cRTxzqkopLZGeXay+DQogIC ZaPJPlEhiCDHSexS0mfqZ6ssEiCCmyiNWuJo9sr5x5LxvyDb0mGf5kOIo6BtHxGuCrGLGuAx3sjX73KV mxbkBwNf7KXhCdVEL7R9GuJyjRZPU+DQogIDwveDp4 pRYaEERwDd1AUQWoPYVbQQKnLXZgKZNzHASzINKnPRWfVNWwPFOnGNItEANjSIWaFZRnHUVuVYEmKOXh OZFwBNDcYKZnHWZpOAApOUZyNCQtFBKzMHBfOMPzLENjDSCtKCGxVKOrLCByTDJxBY6HAXLuXCLbEAPh ICAgICAgICAgICAgICAgICAgICAgICAgICAgICAgIC AgICAgICAgICAgICAgICAgICAgICAgICAgICAgICAgICAgICAgICAgICAgICAgICAgICAgICAgICAgIA 0KICAgICAgICAgICAgICAgICAgICAgICAgICAgICAgICAgICAgICAgICAgICAgICAgICAgICAgICAgIC AgICAgICAgICAgICAgICAgICAgICAgICAgICAgICAg PEHtHRWvQAImCB6RYROsOXBeVAJzYXFgZNJpCVEzJUTcNKGsTRUnYEIvZCLjFUUhFSPiYUPnCCEdCXMd DIRhJFHpYNQuISJaGOFiYOUoHIZeOPHiVQSeIHLdHHYtJLOdQLFnBLCmBGBtBHMcIHGsQY9SKNMsQEJl ICAgICAgICAgICAgICAgICAgICAgICAgICAgICAgIC AgICAgICAgICAgICAgICAgICAgICAgICAgICAgICAgICAgICAgICAgICAgICAgICAgICAgICAgICAgIC EgWV4USUDsCYTjORMiCYUqNITcVLNfWWOpFVDlXWWgQSDyXJErEGUaYODnAGNdOGLiOPEmWFIuTFQgVE AgICAgICAgICAgICAgICAgICAgICAgICAgICAgICAg SXGbKYVwXQDqZNDgHG4ONYRiFKSoZYRzKDByRLZyAJQgIZQdROKbSKHsGSUuFKLxDWOeXTNiEIZeIZMu OKJdSVOdNTTnHPXmTNMqKXHpAAMfLTDeUPOlQXLhDSIwZHLfWPVnPNWrTXEbZBOpZPQzJINlAJ5PBZGp ICAgICAgICAgICAgICAgICAgICAgICAgICAgICAgIC AgICAgICAgICAgICAgICAgICAgICAgICAgICAgICAgICAgICAgICAgICAgICAgICAgICAgICAgICAgIC ZzBPQcEG0GGNXlYNEbHEXpZKJjWQNeITEdQEKbXIDuWTQbVCTvESEiVFBwGKFcOMMxTBYtPVSlUMVlGM AgICAgICAgICAgICAgICAgICAgICAgICAgICAgICAg JGNqMPPcHBCjCNXhNISoHV4QZEEoPWYyVELpGYHbBYDdKHZkOYZwUECuLBOtIKFfWEQxUGOjEECxUWZw ZZKgUCJqGQXzMAPsQBNfFBLaIJGjNAMdSFZhQFViWSKjTSBuGLLtIYMkQEZtCLDfFSMuIODnTTObRJ5S YA62iJWoy8W1EPMcEA7pqvp/Gk2UOOgopcXwqYIqUK 9BNqZuZQ7aos2HMkRyBS9ira7CBZrFWcNeC8F4aGMrDSTeIUVXGpXpN02pDPzwHz80EGanIKStNiHlDV m2Ti2XFyPcG5mqFJAoHaE5NVSgNoWxKMgzXL8Jb5OgyAXqJDu+Iq7KIK8rh9KtRCwuEbEiRL1uig3SRR bYJvWjE5B7zNQxX5P1LVtmGv8XIMAdVWKaQyXwCACP JXkcSQ5KPT4taoI9IL1WoDWoEMKtMCCprQFyMRf2Y22aaZJsGGalSH2NLBM+Shemar+Si9CBOGpZVHpLHAd UaGnEOBSIlKxS91lwSFlHCXkVAYoOBVeGs3GUWTgB7TmieOpzBmxbpRqIKPsMLPPPS9FHYgtjkNkhDZx hHvyVL50nKpuMM8LBv8YCpNaBH7yaa3CvDIhLm4SGM TaQN9RUQSoTCPgGTUwLSP4UBDiMoJsWKxpFFOiVBDrFSU9PUGpLCWdSN3AQkQlSHKvRIf9CCxzZEFpRU Sjxn0RUUGzAWCtHNt4KlJxQYWyYUMlVMhfZGPjBPSgSEnvIPEwYPMkES3YXrDpSXYpGEI7BHcsXSSuKI Koqi4AJVJqCPKfWfH6HPRuIEDlLGFlDUowBOKtHTB7 MHNmXSEoNARfTH3MGgWrMWPuQTWlRWDxVDDsHKOpmd4RMUZwFXSoDPP9KnPlBOBpRUWnJPkaAXQfBUQ1 EPM7YADzGGFsUJ1UYxBzTIZqSXE1VCAxGSDaJTKmts5SXAQrUDZtSDlvQbSyTKOuSHYrWSlpPMCbDPQ9 IikxAXHqJHElHU3HBoTsGNHyWIE0CJUuOZUsEZMhzj 4LFLJlATVdUuI7VlTdZHHbIDAvHQxrDOPxZEB0CZr6ADDwUMBcUG4FRqZkAIJvRAy8GdWpFCQuXBYwaj 1TZTSxOJVdMWU8YxFbWLZuSGYkCAjmYHSvXME3RhR2WLJoMCNfWL0SMxMoPJMtMBt2BeUkNOSeDNBxiw 4RYNAySECyRCwyDLEuJROlFPBvGQmxKJBgQHX7WKW7 XLEfBSSoFB6RXwBpRBFvMDW3OoRzQYLuSDHclt7OwIFjdBidko7TLOqRFi8RwLkbCOZ9JPvzPc9cvWUe DsXgCSTXWk4FddIfDCRcYGFCEXzgWYEnGWffGFN1ASB3C3SgLQYgZmRiUDA6VGs8IPZjACYqLZs8MfU4 SSNbYqRiMwHtT7Z5HKOwLFB5GiQ0FZzsFSTsH3PbVX g+DL6vSCg+Qq5Hl2HtobN2glTiHRvmJXR8Dc4OYCXEY3ECUv== ID Date Data Source [id number] 02/17/2021 06:58:03 PM [facility] Name Value Range Interpretation Code Description Data Wilda rce(s) Supporting Document(s) &PDF [facility] STTXTf8rUhUYOuYr14/AXPfeHGOri4JrMUmmJMj1LMtuRJJeO3ZalZdsDVsUTWDXYE7FZUtGSAEzINA2 FcG [file] z/cryogenics repairer+COaNINeJI6m3xZf1GSevmmJdDL35ki3pzfBIrghY9NAbOlZfLFk0yq6OVKTyfAX4+JnomKMCTQH [file] ICAgICAgICAgICAgICAgICAgICAgICAgICAgICAgICAgICAgICAgICAgICAgICAgICAgICAgICAgICAg ICAgICAgICAgICAgICAgICAgICANCiAgICAgICAgICAgICAgICAgICAgICAgICAgICAgICAgICAgICAg ICAgICAgICAgICAgICAgICAgICAgICAgICAgICAgIC AgICAgICAgICAgICAgICAgICAgICAgICAgICAgICANCiAgICAgICAgICAgICAgICAgICAgICAgICAgIC AgICAgICAgICAgICAgICAgICAgICAgICAgICAgICAgICAgICAgICAgICAgICAgICAgICAgICAgICAgIC AgICAgICAgICAgICANCiAgICAgICAgICAgICAgICAg ICAgICAgICAgICAgICAgICAgICAgICAgICAgICAgICAgICAgICAgICAgICAgICAgICAgICAgICAgICAg ICAgICAgICAgICAgICAgICAgICAgICANCiAgICAgICAgICAgICAgICAgICAgICAgICAgICAgICAgICAg ICAgICAgICAgICAgICAgICAgICAgICAgICAgICAgIC AgICAgICAgICAgICAgICAgICAgICAgICAgICAgICAgICANCiAgICAgICAgICAgICAgICAgICAgICAgIC AgICAgICAgICAgICAgICAgICAgICAgICAgICAgICAgICAgICAgICAgICAgICAgICAgICAgICAgICAgIC AgICAgICAgICAgICAgICANCiAgICAgICAgICAgICAg ICAgICAgICAgICAgICAgICAgICAgICAgICAgICAgICAgICAgICAgICAgICAgICAgICAgICAgICAgICAg ICAgICAgICAgICAgICAgICAgICAgICAgICANCiAgICAgICAgICAgICAgICAgICAgICAgICAgICAgICAg ICAgICAgICAgICAgICAgICAgICAgICAgICAgICAgIC AgICAgICAgICAgICAgICAgICAgICAgICAgICAgICAgICAgICANCiAgICAgICAgICAgICAgICAgICAgIC AgICAgICAgICAgICAgICAgICAgICAgICAgICAgICAgICAgICAgICAgICAgICAgICAgICAgICAgICAgIC AgICAgICAgICAgICAgICAgICANCiAgICAgICAgICAg ICAgICAgICAgICAgICAgICAgICAgICAgICAgICAgICAgICAgICAgICAgICAgICAgICAgICAgICAgICAg ICAgICAgICAgICAgICAgICAgICAgICAgICAgICANCjw/dTVyN9slaPEdhqG7B1hsIg4DRn2TPR4tz8Pa QPBiMZkndsVxFfmEQtKhCPZqQpiAJrx5TQisHS1EvX FfQ0LqD8ApUUdzCV4EAYXdQWSgyOOvZMFtXROoUfW3EYTlFDbqTU9OcFHnMKmcGGZtNUOdPxCxXVSzOL 7WBWWmK642ncGmRn4OIw2NAfAiEE6prl2MVzZgCPGqMmiBXym0RMmiRD2DoBPiH3NtfGLrn1fBLvEiX7 WMVLWjIRYgKr8HCLMmGzSfEACoEDybYF6mVWVhALJY uLfclnN4JN5HFP3gsqCbLL3TGlRdBw7fBa2AEqDwG4FrH7ErLKOdNIUDLIenJU8COGGpTTE8PYCdZKJl GXGPOvYvG29mAH6BP3Bcl79iLdE8MBDcSjKhUXpxHO06sVhtttXpiMFifTqmXA5YDj4+DQplbmRvYmoN SgnuBESFPiEaEmTJUmFySMDoYNVrYEEbFtP1NoHbUt 6LGJPaUFHdQETeAtMuNKXtMYAgPPsbELGpQWVdJJP1FPFzXWBmML7DRlItKEGlOtN8UUCxTJEfATGymu 4QTFKkQCIoXHW6TBGuYUViGQJdDVvsZVNzHXMmDwPfPRWoDDLdPF9FErBwBPFqLNP5CFWzLJSgACUxst 3YVFZlMFTtCYN2CmUvVCYwSDJvCMrqLITpDYY9Exof KHTzPBWdDT4OCqItAESkDHE7HkslINLuETMxbw0NTGBqZBPfLbzfPFVaZJSfNECuYQigXSHjELH7BTA0 MEQmPULwUR4LKnWkMTPqERm7YaAeSGEyYEXgru4PSPKiPSCnPMS8GmNmNAPjXPNkBOswEMKeHMQ4IgR9 FNDnAABdNC8YVzQtOKSsDSvkLfBiUIWoQZEvvd0SVU AgQKUfZPCeCNTnRGIzXQFjUKfaCGRpXJL5WqC8XBIxJFQjDT3LDgUrETPnALW6PTOcKTGoAVRxhb8YIK YgZSSfIVGyJJPaRDLvNVWaQWvhCTPhCRV3BWEbNVMuBJDiMF2JGeJvWKCfYgEzWBexQZHdFUDgrt1LNV LjHZFlFJNiCDVxOEWiPSMgOOwaPHBwGRP2XETgCEOy YBVkOZ5MGhOgSWPhCdR4KsydKHVkWVSblf0SFAXfNROtQvA4PNHpKVRwAVFgWFduWCRbKYQ2UbklRLZx DVHjEE2DThMrVZGfTlw8ABnhCAFyAGXegy8FZFXoPKU9PtG3VbSvEZQkJLQjHNuhNQYpGOB0UOLvQMOx WUEaHJ8FZvBaGQTmQNB4LfDgLOJyKJGltl8CMHHjZG J9NjT6DFZiNAUkWUHaWIdtUSPwZAV6VEA7QJRmQSKtXF0RDvOyHHWyObR8QiAaBZDmVRGmvw2MFJRxXW D0AJWePSSsBHCoHLTxWApgJSUqPQWfYGP0ABQcCLQgAF3VWrXoABmzVFDMDsr6JObqI0b4QMYfXt1ZU4 Nxh1UaLxCzINDPCIenLI0iwjVlALUaCn6PU2bLPrx9 EunsApokTMK5RBUySmZ1SSfiWCe2PSErVNidEJSbCS3fLGTcJSGgUaPqABW4YWZwXFW4X8T8Kho4MKL1 TOEfM2S5DzXpLB4VKr3AEvP8BOH9yAKqIm9TLgFoIHDKMyOpRD9SOHo= ID Date Data Source [id number] 10/13/2020 12:00:00 AM EST [facility] Name Value Range Interpretation Code Description Data Wilda rce(s) Supporting Document(s) SARS coronavirus 2 RNA [facility] This lab was ordered by [facility] and rep orted by [facility]. Procedure Social History Code Duration Value Status Description Data Source(s ) Smoking 08/13/2021 12:00:00 AM EDT Patient is a former smoker completed Patient is a former smoker [facility] ([facility]) Alcohol intake 06/18/2021 12:00:00 AM EDT Ex-drinker (finding) comp leted Ex- drinker (finding) [facility] Alcohol intake 03/18/2021 12:00:00 AM EDT Ex-drinker (finding) comp leted Ex- drinker (finding) [facility] Tobacco use and exposure 12/30/2020 12:00:00 AM EST Never used co mpleted Never used [facility] Smoking 12/30/2020 12:00:00 AM EST Never smoker completed Never s [facility] Alcohol intake 12/30/2020 12:00:00 AM EST Current drinker of al cohol (finding) completed Current drinker of alcohol (finding) [facility] Smoking 12/30/2020 12:00:00 AM EST Never smoker completed Never s [facility] Smoking 09/17/2020 12:00:00 AM EST Patient has never smoked co mpleted Patient has never smoked [facility] ([facility] Vital Signs ID Date Data Source UNK Name Value Range Interpretation Code Description Data Source(s) Heart rate 66 /min 66 /min [facility] ([facility], ) Oxygen saturation in Arterial blood by Pulse oximetry 98 % 98 % [facility] ([facility], ) Body surface area Derived from formula 2.18 m2 2.18 m2 [facility] ([facility], ) Body height 67 [in_i] 67 [in_i] [facility], [facility] 5'7" Diastolic blood pressure 60 mm[Hg] 60 mm[Hg] [facility] ([facility], ) Systolic blood pressure 108 mm[Hg] 108 mm[Hg] M [facility] ([facility], ) Body weight 238.00 [lb_av] 238.00 [lb_av] [facility] Body mass index (BMI) [Ratio] 37.3 kg/m2 37.3 k g/m2 [facility] ([facility], ) Hessel body weight 148 [lb_av] 148 [lb_av] [facility] Body weight 107.957 kg 107.957 kg [facility] ([facility], ) Systolic blood pressure 114 mm[Hg] 114 mm[Hg] [facility] Diastolic blood pressure 76 mm[Hg] 76 mm[Hg] [facility] Heart rate 66 /min 66 /min [facility] Body height 167.6 cm 167.6 cm [facility] Body weight 113.853 kg 113.853 kg [facility] Body mass index (BMI) [Ratio] 40.51 kg/m2 40.51 kg/m2 [facility] Oxygen saturation in Arterial blood by Pulse oximetry 98 % 98 % [facility] Body weight 255.00 [lb_av] 255.00 [lb_av] [facility] ([facility], ) Body height 67 [in_i] 67 [in_i] [facility] ([facility]) 5'7" Body weight 115.668 kg 115.668 kg [facility] ([facility]) Body mass index (BMI) [Ratio] 39.9 kg/m2 39.9 k g/m2 [facility] ([facility]) Hessel body weight 148 [lb_av] 148 [lb_av] [facility] ([facility]) Body surface area Derived from formula 2.24 m2 2.24 m2 [facility] ([facility]) Systolic blood pressure 120 mm[Hg] 120 mm[Hg] [facility] ([facility]) Diastolic blood pressure 60 mm[Hg] 60 mm[Hg] [facility] ([facility]) Heart rate 64 /min 64 /min [facility] ([facility]) Oxygen saturation in Arterial blood by Pulse oximetry 98 % 98 % [facility] ([facility]) Oxygen saturation in Arterial blood by Pulse oximetry 98 % 98 % [facility] ([facility]) Body height 67 [in_i] 67 [in_i] [facility] ([facility]) 5'7" Body weight 255.00 [lb_av] 255.00 [lb_av] [facility] ([facility]) Body mass index (BMI) [Ratio] 39.9 kg/m2 39.9 k g/m2 [facility] ([facility]) Hessel body weight 148 [lb_av] 148 [lb_av] [facility] ([facility]) Body weight 115.668 kg 115.668 kg [facility] ([facility]) Body surface area Derived from formula 2.24 m2 2.24 m2 [facility] ([facility]) Oxygen saturation in Arterial blood by Pulse oximetry 97 % 97 % [facility] ([facility]) Body height 67 [in_i] 67 [in_i] [facility] ([facility]) 5'7" Body weight 250.00 [lb_av] 250.00 [lb_av] [facility] ([facility]) Body weight 113.400 kg 113.400 kg [facility] ([facility]) Systolic blood pressure 126 mm[Hg] 126 mm[Hg] [facility] Diastolic blood pressure 82 mm[Hg] 82 mm[Hg] [facility] ([facility]) Heart rate 68 /min 68 /min [facility] ([facility]) Body mass index (BMI) [Ratio] 39.2 kg/m2 39.2 k g/m2 [facility] ([facility]) Hessel body weight 148 [lb_av] 148 [lb_av] [facility] Body surface area Derived from formula 2.22 m2 2.22 m2 [facility] ([facility]) Diastolic blood pressure 60 mm[Hg] 60 mm[Hg] [facility] Systolic blood pressure 100 mm[Hg] 100 mm[Hg] [facility] Body height 167.6 cm 167.6 cm [facility] Body weight 113.399 kg 113.399 kg [facility] Body mass index (BMI) [Ratio] 40.35 kg/m2 40.35 kg/m2 [facility] Oxygen saturation in Arterial blood by Pulse oximetry 98 % 98 % [facility] Heart rate 70 /min 70 /min [facility] Systolic blood pressure 124 mm[Hg] 124 mm[Hg] [facility] Diastolic blood pressure 90 mm[Hg] 90 mm[Hg] [facility] Heart rate 86 /min 86 /min [facility] Body weight 112.946 kg 112.946 kg [facility] Body mass index (BMI) [Ratio] 40.19 kg/m2 40.19 kg/m2 [facility] Oxygen saturation in Arterial blood by Pulse oximetry 99 % 99 % [facility] Body weight 259.50 [lb_av] 259.50 [lb_av] [facility] ([facility], ) Body mass index (BMI) [Ratio] 40.6 kg/m2 40.6 k g/m2 [facility] ([facility], ) Body weight 117.709 kg 117.709 kg [facility] ([facility], ) Body surface area Derived from formula 2.26 m2 2.26 m2 [facility] ([facility], ) Systolic blood pressure 118 mm[Hg] 118 mm[Hg] [facility] ([facility], ) Diastolic blood pressure 68 mm[Hg] 68 mm[Hg] [facility] ([facility], ) Heart rate 78 /min 78 /min [facility] ([facility], ) Oxygen saturation in Arterial blood by Pulse oximetry 98 % 98 % [facility] ([facility], ) Body temperature 97.5 [degF] 97.5 [degF] [facility] ([facility], ) Body height 67 [in_i] 67 [in_i] [facility] ([facility], ) 5'7" Hessel body weight 148 [lb_av] 148 [lb_av] [facility] ([facility], ) Systolic blood pressure 120 mm[Hg] 120 mm[Hg] [facility] Diastolic blood pressure 92 mm[Hg] 92 mm[Hg] [facility] Heart rate 80 /min 80 /min [facility] Body weight 113.399 kg 113.399 kg [facility] Oxygen saturation in Arterial blood by Pulse oximetry 98 % 98 % [facility] Systolic blood pressure 122 mm[Hg] 122 mm[Hg] [facility] Diastolic blood pressure 70 mm[Hg] 70 mm[Hg] [facility] ([facility]) Heart rate 92 /min 92 /min [facility] ([facility]) Oxygen saturation in Arterial blood by Pulse oximetry 98 % 98 % [facility] ([facility]) Room Air Body height 67 [in_i] 67 [in_i] [facility] ([facility]) 5'7" Body weight 242.00 [lb_av] 242.00 [lb_av] [facility] ([facility]) Body mass index (BMI) [Ratio] 37.9 kg/m2 37.9 k g/m2 [facility] ([facility]) Hessel body weight 148 [lb_av] 148 [lb_av] [facility] Body weight 109.771 kg 109.771 kg [facility] ([facility]) Body surface area Derived from formula 2.19 m2 2.19 m2 [facility] ([facility]) Systolic blood pressure 132 mm[Hg] 132 mm[Hg] [facility] ([facility] Diastolic blood pressure 84 mm[Hg] 84 mm[Hg] [facility] ([facility] Heart rate 102 /min 102 /min [facility] ([facility] Body temperature 97.6 [degF] 97.6 [degF] [facility] ([facility] Respiratory rate 18 /min 18 /min [facility] Body height 66 [in_i] 66 [in_i] [facility] ([facility] 5'6" Body weight 252.25 [lb_av] 252.25 [lb_av] [facility] ([facility] Oxygen saturation in Arterial blood by Pulse oximetry 99 % 99 % [facility] Hessel body weight 142 [lb_av] 142 [lb_av] [facility] ([facility] Body mass index (BMI) [Ratio] 40.7 kg/m2 40.7 k g/m2 [facility] ([facility] Patient Treatment Plan of Care Planned Activity Planned Date Details Description Data Source (s) Aspirin 325 MG Delayed Release Oral Tablet 06/18/2021 12:00:00 AM E DT [facility] Metoprolol Tartrate 50 MG Oral Tablet 05/07/2021 12:00:00 AM EDT [facility] Flecainide Acetate 50 MG Oral Tablet 05/07/2021 12:00:00 AM EDT [facility] Aspirin 325 MG Delayed Release Oral Tablet 03/18/2021 12:00:00 AM E DT [facility] Metoprolol Tartrate 50 MG Oral Tablet 03/18/2021 12:00:00 AM EDT [facility] Flecainide Acetate 50 MG Oral Tablet 03/18/2021 12:00:00 AM EDT [facility] Flecainide Acetate 50 MG Oral Tablet 03/11/2021 12:00:00 AM EDT [facility] Metoprolol Tartrate 50 MG Oral Tablet 03/09/2021 12:00:00 AM EDT [facility] Metoprolol Tartrate 25 MG Oral Tablet 02/19/2021 12:00:00 AM EDT [facility]
[2021-09-18 22:13] VITALS: BP 123/82
== END 2021-09-18 22:14 | disposition home or self-care (01) ==
LOC: M ED 17:39
DX: S93.402A Sprain of unspecified ligament of left ankle, initial encounter (principal); Y92.009 Unspecified place in unspecified non-institutional (private) residence as the place of occurrence of the external cause; Y93.9 Activity, unspecified; Y99.9 Unspecified external cause status

== ENCOUNTER → 2022-12-02 | Outpatient (CLI) | payer OTHER ==
[2022-12-02 13:46] LABS: BASO % 0.5 % (0.0-1.0); EOS # 0.2 10^3/uL (0.0-0.5); EOS % 2.5 % (0.0-3.0); HEMATOCRIT 49.3 % (42.0-52.0); LYMPH # 2.1 10^3/uL (1.5-5.0); LYMPH % 34.8 % (24.0-44.0); MEAN CORPUSCULAR HEMOGLOBIN 30.7 pg (27.0-33.0); MEAN CORPUSCULAR HGB CONC 32.5 g/dl (32.0-36.5); MEAN CORPUSCULAR VOLUME 94.4 fl (80.0-96.0); MONO # 0.5 10^3/uL (0.0-0.8); MONO % 8.7 % (2.0-8.0); NEUTROPHILS # 3.2 10^3/uL (1.5-8.5); NEUTROPHILS % 53.2 % (36.0-66.0); PLATELET COUNT, AUTOMATED 204 10^3/uL (150-450); RED BLOOD COUNT 5.22 10^6/uL (4.30-6.10); WHITE BLOOD COUNT 6.1 10^3/uL (4.0-10.0)
[2022-12-02 14:23] LABS: ALBUMIN 4.1 G/DL (3.2-5.2); ALKALINE PHOSPHATASE 62 U/L (46-116); ALT/SGPT 38 U/L (7.0-40); AST/SGOT 25 U/L (<34); BILIRUBIN,TOTAL 0.6 MG/DL (0.3-1.2); BLOOD UREA NITROGEN 16 MG/DL (9-23); CALCIUM LEVEL 9.1 MG/DL (8.5-10.1); CARBON DIOXIDE LEVEL 27 MMOL/L (20-31); CHLORIDE LEVEL 104 MMOL/L (98-107); CHOLESTEROL LEVEL 150 MG/DL (<200); CHOLESTEROL RISK RATIO 4.57 (<5); CREATININE FOR GFR 1.11 MG/DL (0.70-1.30); GLOMERULAR FILTRATION RATE > 60.0 (>60); GLUCOSE, FASTING 86 MG/DL (60-100); HDL CHOLESTEROL 32.8 MG/DL (>40); LDL CHOLESTEROL 73.6 MG/DL (<100); NON-HDL-C 117 MG/DL; POTASSIUM SERUM 4.5 MMOL/L (3.5-5.1); SODIUM LEVEL 140 MMOL/L (136-145); TOTAL PROTEIN 7.6 G/DL (5.7-8.2); TRIGLYCERIDES LEVEL 218 MG/DL (<150)
[2022-12-02 15:03] LABS: HEMOGLOBIN A1c 5.5 % (4.0-6.0)
== END ==
LOC: M PLALAB 10:23
PROVIDERS: ATTEND Registered Nurse
DX: I48.0 Paroxysmal atrial fibrillation (principal); G47.33 Obstructive sleep apnea (adult) (pediatric)

== ENCOUNTER → 2023-04-21 | Outpatient (CLI) | payer OTHER ==
[2023-04-21 14:23] LABS: BASO % 0.3 % (0.0-1.0); EOS # 0.1 10^3/uL (0.0-0.5); EOS % 1.8 % (0.0-3.0); HEMATOCRIT 48.8 % (42.0-52.0); HEMOGLOBIN 15.5 g/dl (13.5-17.5); LYMPH # 2.2 10^3/uL (1.5-5.0); LYMPH % 35.7 % (24.0-44.0); MEAN CORPUSCULAR HEMOGLOBIN 30.3 pg (27.0-33.0); MEAN CORPUSCULAR HGB CONC 31.8 g/dl (32.0-36.5); MEAN CORPUSCULAR VOLUME 95.3 fl (80.0-96.0); MONO # 0.6 10^3/uL (0.0-0.8); MONO % 9.9 % (2.0-8.0); NEUTROPHILS # 3.1 10^3/uL (1.5-8.5); NEUTROPHILS % 51.8 % (36.0-66.0); PLATELET COUNT, AUTOMATED 194 10^3/uL (150-450); RED BLOOD COUNT 5.12 10^6/uL (4.30-6.10); WHITE BLOOD COUNT 6.1 10^3/uL (4.0-10.0)
[2023-04-21 14:33] LABS: ALBUMIN 4.1 G/DL (3.2-5.2); ALKALINE PHOSPHATASE 66 U/L (46-116); ALT/SGPT 25 U/L (7.0-40); AST/SGOT 14 U/L (<34); BILIRUBIN,TOTAL 0.6 MG/DL (0.3-1.2); BLOOD UREA NITROGEN 18 MG/DL (9-23); CALCIUM LEVEL 9.7 MG/DL (8.5-10.1); CARBON DIOXIDE LEVEL 28 MMOL/L (20-31); CHLORIDE LEVEL 104 MMOL/L (98-107); CHOLESTEROL LEVEL 144 MG/DL (<200); CHOLESTEROL RISK RATIO 4.55 (<5); CREATININE FOR GFR 1.16 MG/DL (0.70-1.30); GLOMERULAR FILTRATION RATE > 60.0 (>60); GLUCOSE, FASTING 89 MG/DL (60-100); HDL CHOLESTEROL 31.6 MG/DL (>40); LDL CHOLESTEROL 91.4 MG/DL (<100); NON-HDL-C 112.4 MG/DL; POTASSIUM SERUM 4.2 MMOL/L (3.5-5.1); SODIUM LEVEL 138 MMOL/L (136-145); THYROID STIMULATING HORMONE 1.446 uIU/ML (0.55-4.78); TOTAL 25(OH) VITAMIN D 27.5 NG/ML (20.0-100.0); TOTAL PROTEIN 7.2 G/DL (5.7-8.2); TRIGLYCERIDES LEVEL 105 MG/DL (<150)
[2023-04-21 14:34] LABS: VITAMIN B12 LEVEL 305 PG/ML (211-911)
[2023-04-21 14:35] LABS: FREE T4 1.14 NG/DL (0.89-1.76)
[2023-04-21 14:38] LABS: FOLATE 18.09 NG/ML (>5.4)
[2023-04-21 14:45] LABS: HEMOGLOBIN A1c 5.3 % (4.0-6.0)
== END ==
LOC: M PLALAB 10:04
PROVIDERS: ATTEND Registered Nurse
DX: E66.9 Obesity, unspecified (principal)

== ENCOUNTER 2024-02-28 21:01 | Emergency (ER) | payer OTHER ==
[2024-02-28] MEDS: NS 1,000 ML IV ONE (22:37)
[2024-02-28 23:15] VITALS: BP 150/66; TEMP 98.1; O2SAT 98
[2024-02-28 23:15] LABS: ALBUMIN 4.1 G/DL (3.2-5.2); ALKALINE PHOSPHATASE 65 U/L (46-116); ALT/SGPT 37 U/L (7.0-40); AST/SGOT 19 U/L (<34); BILIRUBIN,TOTAL 0.2 MG/DL (0.3-1.2); BLOOD UREA NITROGEN 17 MG/DL (9-23); CALCIUM LEVEL 9.2 MG/DL (8.5-10.1); CARBON DIOXIDE LEVEL 26 MMOL/L (20-31); CHLORIDE LEVEL 103 MMOL/L (98-107); CREATININE FOR GFR 1.09 MG/DL (0.70-1.30); GLOMERULAR FILTRATION RATE > 60.0 (>60); GLUCOSE, FASTING 113 MG/DL (60-100); POTASSIUM SERUM 4.3 MMOL/L (3.5-5.1); SODIUM LEVEL 138 MMOL/L (136-145); TOTAL PROTEIN 7.5 G/DL (5.7-8.2)
== END 2024-02-29 00:20 | disposition home or self-care (01) ==
LOC: M ED 21:01
DX: F12.120 Cannabis abuse with intoxication, uncomplicated (principal); R00.0 Tachycardia, unspecified; I45.10 Unspecified right bundle-branch block; I10 Essential (primary) hypertension; Z86.79 Personal history of other diseases of the circulatory system

== ENCOUNTER 2025-02-20 11:29 | Emergency (ER) | payer OTHER ==
[~2025-02-20] VITALS: Ht 165.1 cm; Wt 102.1 kg
[2025-02-20] MEDS ORDERED: METO1TAB87 (11:44)
[2025-02-20] MEDS ORDERED: FLEC100T27 (11:44)
[2025-02-20] MEDS ORDERED: ROSU5TAB49 (11:44)
[2025-02-20] MEDS ORDERED: ELIQ5TAB (11:44)
[2025-02-20] MEDS: ACETAMINOPHEN 325 MG TAB PO ONE (14:24)
[2025-02-20 14:29] VITALS: BP 118/65; TEMP 98.8; O2SAT 100
== END 2025-02-20 14:30 | disposition home or self-care (01) ==
LOC: M ED 11:29
DX: R50.9 Fever, unspecified (principal); B34.9 Viral infection, unspecified; I48.91 Unspecified atrial fibrillation; I10 Essential (primary) hypertension; G47.33 Obstructive sleep apnea (adult) (pediatric); Z79.01 Long term (current) use of anticoagulants; Z79.899 Other long term (current) drug therapy

== ENCOUNTER 2025-10-15 11:51 | Emergency (ER) | payer OTHER ==
[~2025-10-15] VITALS: Ht 165.1 cm; Wt 115.9 kg
[~2025-10-15 11:51] MED LIST changes: +ELIQ5TAB; +FLEC100T27; +METO1TAB87; +ROSU5TAB49
[2025-10-15] MEDS ORDERED: METO1TAB7 (12:23)
[2025-10-15] MEDS ORDERED: ACET-897 PO (12:23)
[2025-10-15] MEDS: KETOROLAC 60 MG/2 ML VIAL IM ONE (12:33)
[2025-10-15] MEDS ORDERED: KETO-204 PO (13:57)
[2025-10-15] MEDS ORDERED: METH-1165 PO (13:57)
[2025-10-15 14:01] VITALS: BP 122/70; TEMP 98.2; O2SAT 96
== END 2025-10-15 14:04 | disposition home or self-care (01) ==
LOC: M ED 11:51
DX: S16.1XXA Strain of muscle, fascia and tendon at neck level, initial encounter (principal); X50.0XXA Overexertion from strenuous movement or load, initial encounter; I10 Essential (primary) hypertension; Z86.79 Personal history of other diseases of the circulatory system; Z79.1 Long term (current) use of non-steroidal anti-inflammatories (NSAID); Z79.899 Other long term (current) drug therapy; Y92.9 Unspecified place or not applicable; Y93.9 Activity, unspecified; Y99.9 Unspecified external cause status
CPT/HCPCS: 70450; 72125; 96372; 99283; J1885; J3360